=== PATIENT | male | born 1965 | race Caucasian/White ===

== ENCOUNTER 2021-12-27 13:36 | Emergency (ER) | payer MEDICARE, MEDICAID, SELFPAY ==
[2021-12-27 14:39] VITALS: BP 119/93; PULSE 82; RESP 18; TEMP 36.8; O2SAT 98; BMI 25.4
[2021-12-27 14:43] LABS: Glucose, Whole Blood 262 mg/dL (60-115)
--- NOTE | 2021-12-27 16:08 | ED.GENADULT ---
HPI - General Adult General Chief complaint: General Medical Stated complaint: Diabetic-no insulin x2 days Time Seen by Provider: 12/27/21 16:08 History of Present Illness HPI narrative: Patient complains that he is out of insulin for 2 days, the reason is that his insulin pen did not work properly He called his doctor's office and they called in a new prescription for the same grimes and the pharmacy told them that they could not refill it as it is too early and otherwise costs too much so he is here seeking an alternative insulin prescription He has had problems with insulin dosing and has had 2 episodes of hypoglycemia over recent weeks as his doctor tries to get the insulin adjusted to him At this point he is asymptomatic he is not dizzy he is not confused he is not nauseous not vomiting is tolerating p.o. and feels fine Related Data Allergies Allergy/AdvReac Type Severity Reaction Status Date / Time No Known Allergies Allergy Verified 12/27/21 14:39 sildenafil [Viagra] AdvReac Unknown not Verified 05/11/15 00:00 effective Review of Systems Review of Systems: No fever no chills no dizziness no weakness no confusion no headache no stiff neck no chest pain no nausea vomiting or diarrhea Yes all other systems are reviewed and are negative PMFSH Past Medical History Source: nursing notes reviewed Medical History (Updated 12/27/21 @ 16:19 by WILI Mccloud) Diabetes Social History Social History Advance Directives: No Advance Directives Information Provided: Yes Physical Exam ED Vital Signs: Vital Signs - 24 hr 12/27/21 14:39 Temperature 98.2 F Pulse Rate 82 Respiratory Rate 18 Blood Pressure 119/93 H Pulse Oximetry 98 BMI result Body Mass Index 25.4 General appearance is no acute distress Head is normocephalic atraumatic Neck is supple Respiratory no distress Extremities full range of motion x4 Neuro gait and balance are normal, interaction both comprehension and expression are normal, A&O x3 Course Course Course Narrative: Patient who was told at the pharmacy that is specific insulin prescription is not available because of an insurance issue and a is not clear what the best substitute product is, today his sugar is 260 he is asymptomatic, he has gone 1 day without his insulin and he has access to his primary care who has dealt with issues of hypoglycemia and getting the insulin balance correct He is advised call your doctor let him know that you could not get the prescribed insulin product and ask him to prescribe a different form of insulin that the pharmacy could feel today with appropriate directions Patient understood that the best plan as there have been issues with his insulin dosing is to have 1 provider write his prescriptions and he does have a provider who is available and he will leave here in call the office and he knows he can return any time if he develops any symptoms or problems that can not be solved through his doctor Medical Decision Making Lab Data Labs: Lab Results 12/27/21 Range/Units 14:40 POC Glucose 262 H (60-115) mg/dL Discharge Plan Discharge Clinical Impression: Medication refill Patient Disposition: Home, Self-Care Additional Instructions: Call your doctor's office as your doctor will write an appropriate insulin product with appropriate dosing They have your records and are from 0 here with your history so best plan is to contact the doctor at [place] which should not be difficult and that will provide best continuity of care Return to this ER any time if you feel worse or have any concerns Interventions: ED Discharge Assessment Last Done: 12/27/21 16:35 Discharge Date/Time: 12/27/21 16:35
== END 2021-12-27 16:35 | disposition home or self-care (01) ==
PROVIDERS: Emergency Provider Emergency Medicine; PCP Internal Medicine
DX: E11.9 Type 2 diabetes mellitus without complications (principal)
CPT/HCPCS: 82947; 99282; 99284

== ENCOUNTER 2025-03-14 09:47 | Inpatient (IN) | payer MEDICARE, SELFPAY ==
--- NOTE | 2025-03-14 | ECG_ITS ---
Test Reason : weakness Blood Pressure : */* mmHG Vent. Rate : 74 BPM Atrial Rate : 74 BPM P-R Int : 184 ms QRS Dur : 118 ms QT Int : 414 ms P-R-T Axes : 46 251 45 degrees QTcB Int : 459 ms Normal sinus rhythm Right bundle branch block Abnormal ECG No previous ECGs available Referred By: Generic ED Physician Electronically Signed By: Renato Bean
--- NOTE | ~2025-03-14 | CT_ITS ---
EXAMINATION: CT ABDOMEN AND PELVIS WITHOUT CONTRAST CLINICAL INFORMATION: Abdominal pain and vomiting, acute kidney injury DLP: 638 mGY*cm COMPARISON: None available. TECHNIQUE: Multidetector volumetric imaging was performed from the superior aspect of the liver through the pubic symphysis. Sagittal and coronal reformatted images were obtained on the technologist's workstation. This CT examination was performed using dose optimization techniques as appropriate, variously including the following: *Automated exposure control *Adjustment of mA and/or kV according to patient size (this includes techniques or standardized protocols for targeted exams where dose is matched to indication/reason for exam; i.e. extremities or head) *Use of iterative reconstruction technique FINDINGS: LUNG BASES: Small pneumatocele is visible in the medial segment right middle lobe. There are a few small pulmonary nodules, solid, in the lung bases. The largest measures 3 x 5 mm in the lateral left lower lobe (image 14/105 series 3). LIVER, GALLBLADDER, AND BILIARY TREE: The liver is normal in size, shape, and attenuation. No focal hepatic lesion or biliary ductal dilatation is present. The gallbladder is unremarkable with no evidence of radiopaque gallstones, gallbladder wall thickening, or obvious pericholecystic inflammatory changes. PANCREAS: Unremarkable. SPLEEN: Unremarkable. ADRENAL GLANDS: Unremarkable. KIDNEYS AND URETERS: There is no hydronephrosis. There is a 2 mm stone in the upper left kidney. BLADDER: Unremarkable. GASTROINTESTINAL TRACT: Fluid is seen throughout small bowel. There is also fluid layering in the rectum. Appendix is normal caliber with small amount of gas in the tip. Shotty subcentimeter nodes are present in the mesentery. There is no ascites. ABDOMINAL WALL: There are changes related to prior anterior wall abdominal hernia repair. There is no sign of recurrence. LYMPH NODES: No lymphadenopathy. VASCULAR: Multifocal atherosclerotic calcifications are in the pelvis, and common femoral arteries. PELVIC VISCERA: Unremarkable. OSSEOUS STRUCTURES: Degenerative endplate irregularity with sclerosis and Schmorl's nodes noted at L2-3, L4-5, and L5-S1. There are also facet osteophytes and hypertrophy. Mild wedging of T12 may be physiologic in nature. CT/CT abdomen pelvis wo IV con IMPRESSION: Fluid is evident throughout the small bowel and in the rectum. This is nonspecific finding but could relate to a gastroenteritis. 2 mm nonobstructing stone, upper left kidney. Lumbar spine degenerative disc disease and facet arthropathy. Changes from ventral hernia repair without recurrence. Multiple small subpleural pulmonary nodules are present in the lung bases, left greater than right. The largest is on the left and measures 3 x 5 mm. No further follow-up is indicated per Fleischner Society recommendations, unless the patient falls into a high risk category, in which case a 12 month follow-up CT chest without contrast is optional. High risk patients includes those with a history of smoking, first-degree relative with lung cancer, or exposure to uranium, radon, or asbestos. Electronically signed by: Fredis Murrieta MD 03/14/2025 03:03 PM EDT
[2025-03-14 09:54] VITALS: BP 107/78; PULSE 80; O2SAT 100
[2025-03-14 10:00] VITALS: BP 113/85; PULSE 78; RESP 19; TEMP 36.6; O2SAT 96; BMI 21.3
[2025-03-14 10:56] LABS: Hematocrit 45.4 % (42.0-52.0); Hemoglobin 16.3 g/dl (14.0-18.0); Mean Corpuscular HGB Conc 35.9 g/dl (31.0-36.0); Mean Corpuscular Hemoglobin 29.6 pg (27.0-33.0); Mean Corpuscular Volume 82.4 fL (80.0-98.0); Mean Platelet Volume 8.6 fL (9.4-12.4); Platelet Count 353 X10*3/uL (160-400); Red Blood Count 5.51 X10*6/uL (4.60-5.80); Red Cell Distribution Width 12.3 % (11.0-16.0); White Blood Count 5.2 X10*3/uL (4.8-10.8)
[2025-03-14 11:08] LABS: Alanine Aminotransferase 13 U/L (0-40); Albumin Level 4.5 g/dL (3.5-5.0); Alkaline Phosphatase 118 U/L (39-117); Anion Gap 18 (12-20); Aspartate Amino Transferase 26 U/L (5-37); Bilirubin Total 0.7 mg/dL (0.0-1.0); Blood Urea Nitrogen 45 mg/dL (9-16); Calcium 9.4 mg/dL (8.4-10.2); Carbon Dioxide 18 mmol/L (22-29); Chloride 98 mmol/L (96-108); Creatinine Clr Calc Pharmacy 28.3; Estimated Glomerular Filt Rate 21; Glucose Random 200 mg/dL (60-115); Magnesium 1.6 mg/dL (1.6-2.6); Potassium 4.2 mmol/L (3.3-5.1); Sodium 130 mmol/L (135-145); Total Protein 7.4 g/dL (6.5-8.0)
--- OUTSIDE RECORDS SUMMARY | 2025-03-14 11:28 | XMS_ITS | Clinical Summary ---
Author Organization [facility] [address] [facility] Address [address] [place] [address] Phone Care Team Providers Care Director Of Student Services Name Role Phone Rudolph Metcalf MD Primary Care Provider [phone] Allergies No known active allergies Medications alcohol swabs (BD Alcohol Swabs) pads, medicated 1 each by Other route. Alcohol Swabs (B-D SINGLE USE SWABS REGULAR) Pads 1 Each by Other route See Admin Instructions. USE DIRECTED THREE TIMES DAILY 4 Active mirtazapine (REMERON) 30 mg tablet Take 1 tablet (30 mg total) by mouth at bedtime. 4 Active ibuprofen (ADVIL,MOTRIN) 600 mg tablet TAKE 1 TABLET BY MOUTH THREE TIMES DAILY NEEDED FOR PAIN 1 Active blood glucose control, normal (OneTouch Ultra Control) solution Blood Glucose Calibration (OT ULTRA/FASTTK CNTRL SOLN) Solution Active propranoloL (INDERAL) 60 mg tablet TAKE 1 TABLET BY MOUTH EVERY DAY FOR 10 DAYS THEN TAKE 1 TABLET BY MOUTH TWICE DAILY FOR 30 DAYS DIRECTED Active insulin glargine,hum.rec. anlog (Basaglar KwikPen U-100 Insulin) 100 unit/mL (3 mL) injection pen ADMINISTER 24-26 UNITS UNDER THE SKIN AT BEDTIME 4 Active BD Ultra-Fine Short Pen Needle 31 gauge x 5/16 needle USE TO INJECT INSULIN UNDER THE SKIN EVERY NIGHT AT BEDTIME 100 each 1 4 Active wnite petrolatum-minera l (EUCERIN) cream Apply topically if needed for wound care. 397 g 5 026 Active lanolin hururae-os-g.pet- ceres (Eucerin) cream Lotion feet daily 100 g 5 Active blood-glucose meter (OneTouch Verio Flex meter) miscIndications:D M (diabetes mellitus), type 2 with peripheral vascular complications ([facility] V24, [facility] V28) Use this monitor to check blood sugars three times a day 1 each 5 Active blood sugar diagnostic (OneTouch Verio test strips) test stripIndications: DM (diabetes mellitus), type 2 with peripheral vascular complications ([facility] V24, [facility] V28) Use this to check blood sugars three times a day 300 each 3 5 026 Active OneTouch UltraSoft LancetsIndication s:DM (diabetes mellitus), type 2 with peripheral vascular complications ([facility] V24, [facility] V28) Use to check blood sugars three times daily 300 each 3 5 026 Active metFORMIN (GLUCOPHAGE) 1,000 mg tablet Take 1 tablet (1,000 mg total) by mouth 2 (two) times a day with meals. 180 tablet 1 5 Active glipiZIDE (GLUCOTROL) 5 mg tablet TAKE 2 TABLETS BY MOUTH EVERY MORNING 180 tablet 1 5 Active diclofenac (VOLTAREN) 1 % topical gel Apply 2 g topically 4 (four) times a day. 30 g 1 5 Active Active Problems Problem Noted Date Diagnosed Date Vitiligo 07/23/2018 Essential tremor 07/23/2018 Mood disorder ([facility] V24) 06/18/2018 Osteophyte determined by x-ray 03/27/2018 Osteoarthritis of right hand 03/27/2018 Incisional hernia, without obstruction or gangre ne 04/11/2016 Erectile dysfunction 09/21/2015 DM (diabetes mellitus), type 2 with peripheral vascular complications ([facility] V24, [facility] V28) 09/21/2015 Hypertension 09/21/2015 Hyperlipidemia 09/21/2015 Insomnia 09/21/2015 Migraines 09/21/2015 Lumbago 02/17/2006 Encounters Date Type Department Care Team Description 02/28/2025 8:30 AM EDT Office Visit Adult [address] [phone] Rudolph Metcalf MD Left hip pain (Primary Dx); Weight loss 02/17/[address] [phone] Fifi Stoddard LPN Fitting for DME (Faxed form from [employer]) 02/03/[address] [phone] Rudolph Metcalf MD Forms/questionnaires (Disabled parking placard/ plate) 02/02/2025 9:20 AM EDT Office Visit [address] [phone] Gabrielle Almodovar PA DM (diabetes mellitus), type 2 with peripheral vascular complications (CMS/HCC V24, CMS/HCC V28) (Primary Dx); Hypertension, unspecified type; Hyperlipidemia, unspecified hyperlipidemia type 12/28/[address] [phone] Gabrielle Almodovar PA letter request 12/28/[address] [phone] Rudolph Metcalf MD Letter for School/Work (Traveling out of the country) from Last 3 Months Immunizations Name Administration Dates Next Due COVID-19 (Moderna/Spikevax) 12yo and older 02/20,01/23/2021 Influenza Quadravalent, MDCK , 0.5ml, preservative free (Flucelvax) 6mo and older 10/09/2021,06/01/2020 Influenza Quadravalent, MDCK , 0.5ml, with preservative (Flucelvax) 6mo and older 06/24/2017 Influenza trivalent, with pr eservative (Fluzone; Afluria) 6mo and older 07/06/2015 Pneumococcal polysaccharide 23 valent (Pneumovax 23) 2yo and older 10/24/2009 Td Tetanus diptheria (Tdvax) 7yo and older 02/13 Tdap Tetanus diptheria acell ular pertussis (Boostrix; Adacel) 7yo and older 09/29/2007 Zoster recombinant (Shingrix) 19yo and older 04/2019,06/07/2019 Surgical History Surgery Date Site/Laterality Comments OTHER SURGICAL HISTORY PROCEDURE: EMERGENCY TRACHEOTOMY; COMMENT: at age 14 reversed now COLONOSCOPY 2.4.15 PROCEDURE: HISTORICAL COLONOSCOPY; COMMENT: polyp KNEE SURGERY Right PROCEDURE: HISTORICAL KNEE SURGERY LEG SURGERY 1976 Left PROCEDURE: HISTORICAL LEG SURGERY; COMMENT: right femur - steel plates HERNIA REPAIR 1965 PROCEDURE: HISTORICAL HERNIA REPAIR/ING Medical History Medical History Date Comments Lumbago DX:Lumbago Erectile dysfunction 09/21/2015 DX:Erectile dysfunction DM (diabetes mellitus), type 2 with peripheral vascular complications ([facility] V24, [facility] V28) 09/21/2015 DX:DM (diabetes mellitus), type 2 with peripheral vascular complications ([facility]) Hypertension 09/21/2015 DX:Hypertension Hyperlipidemia 09/21/2015 DX:Hyperlipidemi a Insomnia 09/21/2015 DX:Insomnia Migraines 09/21/2015 DX:Migraines TBI (traumatic brain injury) ([facility] V24, [facility] V28) 09/21/2015 DX:TBI (traumatic brain inju ry) ([facility]); COMMENT: Memory impairment Family History Medical History Relation Name Comments Other: Other Father Alive and well Other cancer Mother diabetes Relation Name Status Comments Father Alive Mother Alive Social History Tobacco Use Types Packs/Day Years Used Date Smoking Tobacco: Former Cigarettes Q uit: 09/29/2006 Smokeless Tobacco: Never Tobacco Cessation:Counseling Given: Not Answered Alcohol Use Standard Drinks/Week Comments Yes 0 (1 standard drink = 0.6 oz pur e alcohol) Sex and Gender Information Value Date Recorded Sex Assigned at Not on file Legal Sex Male 12:28 AM EST Gender Identity Not on file Sexual Orientation Not on file Obstetrics History Last Filed Vital Signs Vital Sign Reading Time Taken Comments Blood Pressure 108/64 02/28/2025 8:25 AM EDT Pulse 60 02/28/2025 8:25 AM EDT Temperature 36.5 ??C (97.7 ??F) 02/28/2025 8:25 AM ED T Respiratory Rate 14 02/28/2025 8:25 AM EDT Oxygen Saturation 98% 02/28/2025 8:25 AM EDT Inhaled Oxygen Concentration - - Weight 85.7 kg (189 lb) 02/28/2025 8:25 AM EDT Height 193 cm (6' 4 ) 02/28/2025 8:25 AM EDT Body Mass Index 23.01 02/28/2025 8:25 AM EDT Plan of Treatment Upcoming Encounters Date Type Department Care Team (Late st Contact Info) Description 06/01/2025 11:00 AM EDT Office Visit Adult Medicine [facility] [address] [place] [address] Rudolph Metcalf MD [address] [place] [id number] 07/26/2025 10:00 AM EDT Office Visit Orthopedic Surgery - [place] [address] [phone] Momo Majano, DPM [address] [address] Health Maintenance Due Date Last Done Comments Diabetes: Annual Foot Exam 1975 HIV Screening 09/07/2022 Medicare Annual Wellness Visit 09/07/2022 Social Influencers of Health Screening 09/07/2022 COVID-19 Vaccine ( season) 2024 02/20/2021, 01/23/2021 Diabetes: Annual Retina Eye Exam 11/12/2024 11/12/2023 Diabetes: Annual GFR (Glomerular Filtration Rate) 05/04/2025 05/04/2024 Hypertension/CHF/CAD Annual BMP Blood Test 05/04/2025 05/04/2024 Depression Screening 05/28/2025 05/28/2024 Influenza Vaccine (Season Ended) 2025 10/09/2021, 06/01/2020, 06/07/2019, Additional history exists Diabetes: Blood Sugar Control Test (HGBA1C) 08/05/2025 02/02/2025, 08/04/2024, 05/04/2024, Additional history exists Diabetes: Annual Urine Albumin-Creatinine Ratio (uACR) 12/06/2025 12/06/2024, 11/13/2023 DTaP,Tdap,and Td Vaccines (3 - Td or Tdap) 02/14/2028 02/13/2018, 09/29/2007 Colorectal Cancer Screening: Colonoscopy 11/13/2028 11/13/2023 Cholesterol Screening (Lipid Panel) 12/06/2029 12/06/2024, 11/13/2023 Hepatitis C Screening Completed 10/12/2015 Zoster Vaccines Completed 08/06/2019, 06/07/2019 Pneumococcal Vaccine: 50+ Years Completed 12/31/2024, 10/24/2009 Pneumococcal Vaccine: Pediatrics (0 to 5 Years) and At-Risk Patients (6 to 64 Years) Completed 12/31/2024, 10/24/2009 RSV Immunization Adult Patients Completed 12/31/2024 HIB Vaccines Aged Out No longer eligi ble based on patient's age to complete this topic HPV Vaccines Aged Out No longer eligi ble based on patient's age to complete this topic Hepatitis A Vaccines Aged Out No long er eligible based on patient's age to complete this topic Hepatitis B Vaccines Aged Out No long er eligible based on patient's age to complete this topic IPV Vaccines Aged Out No longer eligi ble based on patient's age to complete this topic MMR Vaccines Aged Out No longer eligi ble based on patient's age to complete this topic Meningococcal ACWY Vaccine Aged Out N o longer eligible based on patient's age to complete this topic Meningococcal B Vaccine Aged Out No l onger eligible based on patient's age to complete this topic RSV Immunization Patients Under 20 months Aged Out No longer eligible based on patient's age to complete this topic Varicella Vaccines Aged Out No longer eligible based on patient's age to complete this topic Procedures Procedure Name Priority Date/Time Associated Diagnosis Comments HEMOGLOBIN A1C Routine 02/02/2025 10:00 AM EDT DM (diabetes mellitus), type 2 with peripheral vascular complications ([facility] V24, [facility] V28) MICROALBUMIN CREATININE URINE RATIO Routine 12/06/2024 9:43 AM EDT Controlled type 2 diabetes mellitus with complication, with long-term current use of insulin ([facility] V24, [facility] V28) LIPID PANEL WITH REFLEX TO DIRECT LDL Routine 12/06/2024 9:43 AM EDT Controlled type 2 diabetes mellitus with complication, with long-term current use of insulin ([facility] V24, [facility] V28) DEPRESSION SCREENING Routine 05/28/2024 COLONOSCOPY Routine 11/13/2023 DIABETES EYE EXAM Routine 11/12/2023 HEPATITIS C SCREENING Routine 10/12/2015 from Last 3 Months or Most Recently Relevant to Health Maintenance Results * (ABNORMAL) Hemoglobin A1c (02/02/2025 10:00 AM EDT) Hemoglobin A1C 7.6(H) <6.5 % LAB CHEMISTRY METHOD 02/02/2025 9:27 PM EDT [facility] Mean Bld Glu Estim. 171 mg/dL LAB CHEMISTRY METHOD 02/02/2025 9:27 PM EDT [facility] Blood Venous blood specimen / Unknown Venipuncture / Unknown 02/02/2025 10:00 AM EDT 02/02/2025 10:00 AM EDT us Gabrielle RASHEED LAB BLOOD ORDERABLES Final Resul t [facility] [address] [place] [address], [place] [phone] * (ABNORMAL) Lipid panel with reflex to direct LDL (12/06/2024 9:43 AM EDT) Cholesterol 103 0 - 200 mg/dL LAB CHEMISTRY METHOD 12/06/2024 1:05 PM EDT [facility] Triglycerides 124 0 - 150 mg/dL LAB CHEMISTRY METHOD 12/06/2024 1:05 PM EDT [facility] HDL 29(L) >=40 mg/dL LAB CHEMISTRY METHOD 12/06/2024 1:05 PM EDT [facility] LDL Calculated 49 0 - 100 mg/dL LAB CHEMISTRY METHOD 12/06/2024 1:05 PM EDT [facility] VLDL Cholesterol [place] 24.8 mg/dL LAB CHEMISTRY METHOD 12/06/2024 1:05 PM EDT [facility] Non HDL Chol. (LDL+VLDL) 74 <145 mg/dL LAB CHEMISTRY METHOD 12/06/2024 1:05 PM EDT [facility] Chol/HDL Ratio 3.6 0.0 - 4.4 LAB CHEMISTRY METHOD 12/06/2024 1:05 PM EDT [facility] Blood Venous blood specimen / Unknown Venipuncture / Unknown 12/06/2024 9:43 AM EDT 12/06/2024 9:43 AM EDT us Rudolph Metcalf MD LAB BLOOD ORDERABLES Final Resu lt [facility] [address] [place] [address], * (ABNORMAL) Microalbumin creatinine urine ratio (12/06/2024 9:43 AM EDT) Creatinine, Urine 289.0 mg/dL LAB CHEMISTRY METHOD 12/06/2024 1:58 PM EDT [facility] Microalb, Ur 41.1(H) 0.0 - 29.0 mg/L LAB CHEMISTRY METHOD 12/06/2024 1:58 PM EDT [facility] Microalb/Crea t Ratio 14 <30 mg/g creat LAB CHEMISTRY METHOD 12/06/2024 1:58 PM EDT [facility] Urine Urine specimen obtained by clean catch procedure / Unknown Non-blood Collection / Unknown 12/06/2024 9:43 AM EDT 12/06/2024 9:43 AM EDT Rudolph Metcalf MD LAB URINE ORDERABLES Final Resu lt [facility] [address] [place] [address], [place] [phone] * Depression Screening (05/28/2024) [facility] Depression Screening Abstracted Historical Provider HEALTH MAINTENANCE Final Result * Colonoscopy (11/13/2023) [facility] Colonoscopy No Interpretation , Abstracted Anatomical Region Laterality Modality Other [facility] Provider HEALTH MAINTENANCE Final Result * Diabetes Eye Exam (11/12/2023) [facility] Diabetes: Annual Retina Eye Exam Abstracted Historical Provider HEALTH MAINTENANCE Final Result * Hepatitis C Screening (10/12/2015) [facility] Hepatitis C Screening Abstracted Historical Provider HEALTH MAINTENANCE Final Result from Last 3 Months or Most Recently Relevant to Health Maintenance Insurance [employer] MEDICARE ADVANTAGE MEDICAID - [place] Care Teams Director Of Student Services Relationship Specialty Start Date End Date Rudolph Metcalf MD [address] [place] [id number] PCP - General Internal Medicine 08/03/05
[2025-03-14 11:37] LABS: Neutrophils Percent Manual 33 % (45-73)
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
[2025-03-14 11:40] LABS: Atypical Lymph Absolute Manual 0.1 x10*3/uL; Atypical Lymphs Percent Manual 1 % (0-6); Band Neutrophils Percent 11 % (3-5); Basophils Abs Manual 0.1 X10*3/uL (0.0-0.2); Basophils Percent Manual 2 % (0-2); Eosinophils Absolute Manual 0.2 X10*3/uL (0.0-0.4); Eosinophils Percent Manual 3 % (0-4); Lymphocytes Percent Manual 20 % (20-40); Metamyelocytes Absolute 0.1 X10*3/uL; Metamyelocytes Percent 1 %; Monocytes Absolute Manual 1.5 X10*3/uL (0.1-1.2); Monocytes Percent Manual 29 % (2-11); Neutrophils Absolute Manual 2.3 X10*3/uL (2.0-8.3)
[2025-03-14 11:41] LABS: RBC Morphology NOTED
[2025-03-14 11:42] LABS: Acanthocytes 2+ (3-5) /OIF; Burr Cells 3+ (>5) /OIF; Platelet Estimate NORMAL (NORMAL); Platelet Morphology Comment NORMAL
[2025-03-14] MEDS: 0.9 % Sodium Chloride 1,000 ML 999 ML IV ×3 (11:58→15:32)
[2025-03-14] MEDS: ondansetron HCL 4 MG/2 ML VIAL IVPUSH (11:58)
[2025-03-14] MEDS: Pantoprazole Sodium 40 MG/10 ML VIAL IVPUSH (11:58)
[2025-03-14] MEDS: levoFLOXacin/D5W 750 MG/150 ML PIGGYBACK 100 MG IV (12:32)
[2025-03-14 12:42] VITALS: BP 118/76; PULSE 68; RESP 16; TEMP 36.2; O2SAT 98
[2025-03-14] MEDS: Magnesium Hydrox/Alum Hydrox 30 ML ORAL.SUSP PO (13:40)
[2025-03-14 14:51] VITALS: BP 91/56; PULSE 666; RESP 12; TEMP 36.2; O2SAT 98
--- NOTE | 2025-03-14 15:06 | PC.NURSE ---
Pt has not produced any urine after first liter of IVF's; bladder scan showed no retention; MD made aware
[2025-03-14 15:34] LABS: Appearance Urine Cloudy; Color Urine Dark Yellow; Glucose Urine UA Negative (Negative); Leukocyte Esterase Urine Trace (Negative); Nitrite Urine Negative (Negative); PH 5.5 (5.0-9.0); Specific Gravity - Urine >= 1.030 (1.005-1.025); UMIC TRIGGER UACC YES; Urine Blood Negative (Negative); Urine Ketones 15 mg/dL (Negative); Urine Protein 100 (2+) mg/dL (Neg-Trace)
--- NOTE | 2025-03-14 15:42 | PM.IMHP ---
History of Present Illness Date of Service: 03/14/25 Chief Complaint: Diarrhea, weakness A 60 years old male with PMH of DMII, HTN who presents to ED with 1 week history of nausea, vomiting, diarrhea and abdominal pain [place] He reports nausea and vomiting could not allow him to drink or eat for few days while he has been goind frequently to the bathroom for diarrhea. water, brownish in color. No fever, chest pain, palpitations, SOB, or urinary symptoms. Did not seen blood in stool or with vomiting. Feels tired and fatigued. His mother was with him in trip and got similar symptoms but resolved. In ED found to have Cr of 3 which is new along with low sodium level. Abd CT showing possible gastroenteritis. CT also reports lung nodules that needs follow up in 12 months. admitted for further work up and treatment Review of Systems Review of Systems: No fever, chills but has weakness No chest pain, palpitation No shortness of breath or coughing reporting abdominal pain, nausea or vomiting No urinary symptoms No any rash or wounds PMFSH Medical History Diabetes Social History Household Members: Family Housing: Other Housing Other:: moble home Patient Tobacco Use Status: Never used Tobacco Smoked in Last 30 Days: No Use of substances other than those prescribed or required for medical reasons: No Currently Displaying Signs/Symptoms of Drug Intoxication Withdrawal: No Have you been hit, kicked, punched, or otherwise hurt by someone within the past year? If so, by whom?: No Do you feel safe in your current relationship?: No Current Relationship Is there a partner from a previous relationship who is making you feel unsafe now?: No Are you made to feel afraid or neglected: No Advance Directives: No Advance Directives Information Provided: Yes Do you have a plan to hurt others: No Plan Recently lost weight without trying: Unsure Eating poorly because of decreased appetite: Yes Nutrition Risks: Poor intake 0-25% >4 days Poor oral hygiene: No service: No Meds Allergies Allergy/AdvReac Type Severity Reaction Status Date / Time No Known Allergies Allergy Verified 03/14/25 10:01 Active Medications: Current Medications Sodium Chloride (Ns) 1,000 mls @ 999 mls/hr IV .Q1H1M ONE Stop: 03/14/25 16:27 Last Admin: 03/14/25 15:32 Dose: 999 mls/hr Home Medications ?Medication ?Instructions ?Recorded ?Confirmed ?Last Taken ?Type glipizide 5 mg tablet 10 mg PO DAILY 03/14/25 03/14/25 03/14/25 History insulin glargine 100 unit/mL (3 24 unit subcut BEDTIME 03/14/25 03/14/25 03/13/25 History mL) subcutaneous pen (Basaglar KwikPen U-100 Insulin) metformin 1,000 mg tablet 1,000 mg PO BID 03/14/25 03/14/25 03/14/25 History mirtazapine 30 mg tablet 30 mg PO BEDTIME 03/14/25 03/14/25 03/13/25 History propranolol 60 mg tablet 120 mg PO DAILY 03/14/25 03/14/25 03/14/25 History Physical Exam Vital Signs and Narrative: Vital Signs: Last Vital Signs Temp 97.1 F 03/14/25 14:51 Pulse 666 H 03/14/25 14:51 Resp 12 03/14/25 14:51 BP 91/56 L 03/14/25 14:51 Pulse Ox 98 03/14/25 14:51 O2 Del Method Room Air 03/14/25 14:51 BMI result Body Mass Index 21.3 Const: Other: Constitutional : Awake, interactive, not in distress Neck : Normal inspection, Supple Cardiovascular : RRR, no JVP, no lower extremity edema Respiratory : good bilateral air entry, no crackles, wheezes or rhonchi Gastrointestinal: soft, lax, Normal bowel sounds, generalized tenderness Skin : Warm, Dry Neurological : Alert & oriented x3, No focal deficit Results Labs 03/15/25 05:48 03/15/25 05:48 Labs: Laboratory Results - last 24 hr 03/14/25 10:48 MCV 82.4 MCH 29.6 MCHC 35.9 RDW 12.3 Plt Count 353 MPV 8.6 L Immature Gran % (Auto) Cancelled Neut % (Auto) Cancelled Lymph % (Auto) Cancelled [place] % (Auto) Cancelled Eos % (Auto) Cancelled Baso % (Auto) Cancelled Lymph # (Auto) Cancelled [place] # (Auto) Cancelled Eos # (Auto) Cancelled Baso # (Auto) Cancelled Abs Immat Gran (auto) Cancelled Absolute Neuts (auto) Cancelled Absolute Nucleated RBC 0.000 Nucleated RBC % (auto) 0.0 Neutrophils % (Manual) 33 L Band Neutrophils % 11 H Lymphocytes % (Manual) 20 Atypical Lymphs % (Man) 1 Monocytes % (Manual) 29 H Eosinophils % (Manual) 3 Basophils % (Manual) 2 Metamyelocytes % 1 Abs Neuts (Manual) 2.3 Lymphocytes # (Manual) 1.0 L Atyp Lymphs # (Manual) 0.1 Monocytes # (Manual) 1.5 H Eosinophils # (Manual) 0.2 Basophils # (Manual) 0.1 Metamyelocytes # 0.1 Platelet Estimate NORMAL Plt Morphology Comment NORMAL RBC Morphology NOTED [place] Cells 3+ (>5) Acanthocytes (Spur) 2+ (3-5) Anion Gap 18 Estim Creat Clear Calc 28.3 Estimated GFR 21 Random Glucose 200 H Calcium 9.4 Magnesium 1.6 Total Bilirubin 0.7 AST 26 ALT 13 Alkaline Phosphatase 118 H Total Protein 7.4 Albumin 4.5 Imaging Radiologist's Impressions: Impressions Abdomen/Pelvis CT 03/14/25 12:57 IMPRESSION: Fluid is evident throughout the small bowel and in the rectum. This is nonspecific finding but could relate to a gastroenteritis. 2 mm nonobstructing stone, upper left kidney. Lumbar spine degenerative disc disease and facet arthropathy. Changes from ventral hernia repair without recurrence. Multiple small subpleural pulmonary nodules are present in the lung bases, left greater than right. The largest is on the left and measures 3 x 5 mm. No further follow-up is indicated per Fleischner Society recommendations, unless the patient falls into a high risk category, in which case a 12 month follow-up CT chest without contrast is optional. High risk patients includes those with a history of smoking, first-degree relative with lung cancer, or exposure to uranium, radon, or asbestos. Electronically signed by: Fredis Murrieta MD 03/14/2025 03:03 PM EDT Assessment and Plan (1) NANI (acute kidney injury): Status: Acute (2) Dehydration: Status: Acute (3) Gastroenteritis: Status: Acute (4) Acute hyponatremia: Status: Acute (5) Lung nodules: Status: Acute Plan a 60-year-old male brought in by ambulance for evaluation of persistent nausea, vomiting, nonbloody watery diarrhea for about a week. Acute gastroenteritis CT scan report as above IV fluids IV Flagyl for now Stool panel Acute renal failure likely ATN IVF, avoid nephrotoxic follow I\O and BMP acute Hyponatremia from dehydration IV fluids follow BMP DMII Lantus, SSI POC Lung nodules Small in size per CT needs outpatient follow up as outpatient in 12 months DVT PPx Lovenox The patient needs 2 overnight hospital stay for treatment of acute gastroenteritis and renal failure Quality Stroke Does the patient have a stroke diagnosis?: No VTE Prior VTE?: No VTE Risk Level:: Medical - moderate - high VTE Device Contraindication: Treatment Not Indicated VTE Drug Contraindication: N/A - Med Ordered
[2025-03-14 15:44] LABS: Chloride Urine Random < 20.0 mmol/L; Potassium Urine Random 53.3 mmol/L; Sodium Urine Random < 20.0 mmol/L
--- NOTE | 2025-03-14 15:50 | PC.NURSE ---
Pt able to void urine approx 75 ml; dark pita; pt also had loose, liquid stool/sent to lab per orders; pt ambulates with steady, indepen. gait; BP 120/68 at this time
[2025-03-14 15:58] LABS: Bacteria Urine None Seen (None Seen); Hyaline Casts Urine >20 /LPF (0-2); RBC Urine 0-2 /HPF (0-2); WBC Urine 0-5 /HPF (0-5)
[2025-03-14 16:01] LABS: Osmolality Urine 594 mosm/kg (373-1093)
[2025-03-14 16:29] LABS: CDiff Gene PCR NEGATIVE (Negative)
--- NOTE | 2025-03-14 16:45 | PHA.MEDREC ---
Addendum entered by Margie Carter [facility] 03/14/25 17:23: REVIEWED BY PHARMACIST Original Note: Pharmacy Consult ? Medication Reconciliation Pharmacy has completed the medication reconciliation. Spoke to patient to confirm med list. Patient had his RX bottles with him. Patient states he hasn't started Diclofenac sod Gel. Patient confirmed Glipazide 10 daily even though claims has Glipazide 5 mg Take 2 tablets by every morning and 1 tablet every evening, Propranolol patient takes 120 mg daily, even though claims has Propranolol 60 mg BID. Basaglar KwikPen 24 units daily. Patient had all his morning medications today at around 8:30am.
[2025-03-14] MEDS: Enoxaparin Sodium 40 MG/0.4 ML SYRINGE SUBCUT (17:25)
[2025-03-14] MEDS: metroNIDAZOLE/NS 500 MG/100 ML PIGGYBACK 100 MG IV (17:25)
[2025-03-14] MEDS: Lactated Ringers 1,000 ML 100 ML IVCONT (17:34)
[2025-03-14 17:38] LABS: Leukocytes Stool Qualitative NEGATIVE (NEGATIVE)
[2025-03-14 18:19] LABS: Glucose, Whole Blood 54 mg/dL (60-115)
[2025-03-14] MEDS: Dextrose 50 % 25 GM/50 ML SYRINGE IVPUSH (18:35)
--- NOTE | 2025-03-14 18:38 | PC.NURSE ---
Pt's POC BG 54; Dr May notified; pt mentating, not diaphoretic; pt gv 1 amp D50% per orders and pt tolerating PO apple juice at this time w/o N/V; will cont to monitor
[2025-03-14 19:08] LABS: Glucose, Whole Blood 145 mg/dL (60-115)
--- NOTE | 2025-03-14 19:40 | PC.NURSE ---
this rn assumed care of pt ,pt resting in stretcher. poc obtained. pt offers no complaints at this time
[2025-03-14 21:07] VITALS: BP 116/70; PULSE 75; RESP 18; TEMP 36.7; O2SAT 96
[2025-03-14] MEDS: Insulin Glargine,Hum.rec.anlog 100 UNIT/ML 10 ML VIAL 10 UNIT SUBCUT (21:24)
[2025-03-14] MEDS: Mirtazapine 30 MG TABLET PO (21:24)
[2025-03-14 23:35] VITALS: BP 119/64; PULSE 92; RESP 18; TEMP 37.1; O2SAT 94
[2025-03-15] MEDS: 0.9 % Sodium Chloride Flush 3 ML SYRINGE IVFLUSH ×2 (00:11→15:15)
[2025-03-15] MEDS: Lactated Ringers 1,000 ML 100 ML IVCONT ×2 (01:09→12:51)
[2025-03-15] MEDS: metroNIDAZOLE/NS 500 MG/100 ML PIGGYBACK 100 MG IV ×3 (01:10→17:03)
[2025-03-15 01:36] LABS: Glucose, Whole Blood 139 mg/dL (60-115)
[2025-03-15 04:00] VITALS: BP 101/65; PULSE 67; RESP 18; TEMP 36.3; O2SAT 94
[2025-03-15 06:48] LABS: Hematocrit 38.7 % (42.0-52.0); Hemoglobin 13.3 g/dl (14.0-18.0); Mean Corpuscular HGB Conc 34.4 g/dl (31.0-36.0); Mean Corpuscular Hemoglobin 29.4 pg (27.0-33.0); Mean Corpuscular Volume 85.6 fL (80.0-98.0); Mean Platelet Volume 9.1 fL (9.4-12.4); Platelet Count 226 X10*3/uL (160-400); Red Blood Count 4.52 X10*6/uL (4.60-5.80); Red Cell Distribution Width 12.4 % (11.0-16.0); White Blood Count 4.4 X10*3/uL (4.8-10.8)
[2025-03-15 07:26] LABS: Alanine Aminotransferase 7 U/L (0-40); Albumin Level 3.6 g/dL (3.5-5.0); Alkaline Phosphatase 91 U/L (39-117); Anion Gap 12 (12-20); Aspartate Amino Transferase 13 U/L (5-37); Bilirubin Total 0.5 mg/dL (0.0-1.0); Blood Urea Nitrogen 45 mg/dL (9-16); Calcium 8.5 mg/dL (8.4-10.2); Carbon Dioxide 21 mmol/L (22-29); Chloride 105 mmol/L (96-108); Creatinine Clr Calc Pharmacy 33.6; Estimated Glomerular Filt Rate 26; Glucose Random 41 mg/dL (60-115); Potassium 3.5 mmol/L (3.3-5.1); Sodium 134 mmol/L (135-145); Total Protein 5.9 g/dL (6.5-8.0)
[2025-03-15 07:28] VITALS: BP 110/67; PULSE 60; RESP 16; TEMP 36.2; O2SAT 99
[2025-03-15] MEDS: Dextrose 50 % 25 GM/50 ML SYRINGE IVPUSH (07:33)
[2025-03-15 07:50] LABS: Glucose, Whole Blood 52 mg/dL (60-115)
[2025-03-15 08:18] LABS: Glucose, Whole Blood 162 mg/dL (60-115)
[2025-03-15 08:22] LABS: Atypical Lymph Absolute Manual 0.2 x10*3/uL; Atypical Lymphs Percent Manual 5 % (0-6); Band Neutrophils Percent 9 % (3-5); Basophils Percent Manual 1 % (0-2); Eosinophils Percent Manual 1 % (0-4); Lymphocytes Absolute Manual 0.8 X10*3/uL (1.2-4.9); Lymphocytes Percent Manual 18 % (20-40); Metamyelocytes Percent 1 %; Monocytes Absolute Manual 1.1 X10*3/uL (0.1-1.2); Monocytes Percent Manual 24 % (2-11); Neutrophils Absolute Manual 2.2 X10*3/uL (2.0-8.3); Neutrophils Percent Manual 41 % (45-73)
[2025-03-15 08:26] LABS: Acanthocytes 2+ (3-5) /OIF; Burr Cells 3+ (>5) /OIF; Ovalocytes 1+ (5-14) /OIF; Platelet Estimate NORMAL (NORMAL); Platelet Morphology Comment NORMAL; RBC Morphology NORMAL; Toxic Vacuolation PRESENT
[2025-03-15 09:35] LABS: Adenovirus F 40/41 Not Detected (Not Detect.); Astrovirus Not Detected (Not Detect.); Campylobacter Not Detected (Not Detect.); Cryptosporidium Not Detected (Not Detect.); Cyclospora cayetanensis Not Detected (Not Detect.); E. coli EAEC Not Detected (Not Detect.); E. coli EPEC Not Detected (Not Detect.); E. coli ETEC Not Detected (Not Detect.); E. coli STEC Not Detected (Not Detect.); Entamoeba histolytica Not Detected (Not Detect.); Giardia lamblia Not Detected (Not Detect.); Norovirus GI/GII Not Detected (Not Detect.); Plesiomonas shigelloides Not Detected (Not Detect.); Rotavirus A Not Detected (Not Detect.); Salmonella Not Detected (Not Detect.); Sapovirus Not Detected (Not Detect.); Shigella sp./EIEC Not Detected (Not Detect.); Vibrio Not Detected (Not Detect.); Vibrio Cholerae Not Detected (Not Detect.); Yersinia enterocolitica Not Detected (Not Detect.)
--- NOTE | 2025-03-15 09:49 | MHC.CM.PN ---
IMM DELIVERED. PATIENT LIVES AT HOME W/ HIS BROTHER. INDEPENDENT W/ CARE. DENIES USE OF DME OR SERVICES. PCP ANTWAN SWEET MD NO HCP. CM PROVIDED EDUCATION AND OFFERED ASSISTANCE. PATIENT DECLINED. DP: HOME SELF CARE, MOTHER TO TRANSPORT. CM WILL CONTINUE TO FOLLOW.
--- NOTE | 2025-03-15 11:30 | HO.PM.IMPN ---
Subjective Subjective Date of Service: 03/15/25 Interval History: seen and evaluated feels little better diarrhea improving no more vomiting no other events Review of Systems Review of Systems: Yes all other systems are reviewed and are negative Physical Exam Vital Signs: Vital Signs: Last Vital Signs Temp 97.1 F 03/15/25 07:28 Pulse 60 03/15/25 07:28 Resp 16 03/15/25 07:28 BP 110/67 03/15/25 07:28 Pulse Ox 99 03/15/25 07:28 O2 Del Method Room Air 03/15/25 07:28 BMI result Body Mass Index 21.3 Const: Other: Constitutional : Awake, interactive, not in distress Neck : Normal inspection, Supple Cardiovascular : RRR, no JVP, no lower extremity edema Respiratory : good bilateral air entry, no crackles, wheezes or rhonchi Gastrointestinal: soft, lax, Normal bowel sounds, generalized tenderness Skin : Warm, Dry Neurological : Alert & oriented x3, No focal deficit Objective Data Active Medications Acetaminophen (Acetaminophen 325 Mg Tablet) 650 mg PO Q6H PRN PRN Reason: Pain, Mild 1-3,fever,headache Calcium Carbonate (Calcium Carbonate 750 Mg Tab.Chew) 750 mg PO Q4H PRN PRN Reason: Heartburn Dextrose (Dextrose 50 % 25 Gm/50 Ml Syringe) 25 gm IVPUSH Q15M PRN; Protocol PRN Reason: per Hypoglycemia Standing Ord. Last Admin: 03/15/25 07:33 Dose: 25 gm Documented By: MILDRED Enoxaparin Sodium (Enoxaparin Sodium 40 Mg/0.4 Ml Syringe) 40 mg SUBCUT Q24H [facility] Last Admin: 03/14/25 17:25 Dose: 40 mg Documented By: MARITA Lactated Ringer's (Lr) 1,000 mls @ 100 mls/hr IVCONT .Q10H [facility] Last Admin: 03/15/25 01:09 Dose: 100 mls/hr Documented By: LISY Metronidazole (Flagyl) 500 mg in 100 mls @ 100 mls/hr IV Q8H [facility] Last Infusion: 03/15/25 10:18 Dose: Infused Documented By: MILDRED Insulin Glargine (Insulin Glargine,Hum.Rec.Anlog 100 Unit/Ml 10 Ml Vial) 10 unit SUBCUT BEDTIME [facility] Last Admin: 03/14/25 21:24 Dose: 10 unit Documented By: LISY Insulin Human Lispro (Insulin Lispro 100 Unit/Ml 3 Ml Vial) 0 unit SUBCUT QIDACHS [facility]; Protocol Last Admin: 03/15/25 08:10 Dose: Not Given Documented By: MILDRED Non-Admin Reason: No Insulin Coverage Magnesium Hydroxide (Milk Of Magnesia 30 Ml Oral.Susp) 30 ml PO DAILY PRN PRN Reason: Constipation Melatonin (Melatonin 3 Mg Tablet) 6 mg PO BEDTIME PRN PRN Reason: Insomnia Mirtazapine (Mirtazapine 30 Mg Tablet) 30 mg PO BEDTIME [facility] Last Admin: 03/14/25 21:24 Dose: 30 mg Documented By: LISY Ondansetron HCl (Ondansetron Hcl 4 Mg/2 Ml Vial) 4 mg IVPUSH Q8H PRN PRN Reason: Nausea and Vomiting Sodium Chloride (0.9 % Sodium Chloride Flush 3 Ml Syringe) 3 ml IVFLUSH QSHIFT [facility] Last Admin: 03/15/25 09:14 Dose: Not Given Documented By: MILDRED Non-Admin Reason: IV Running Labs 03/15/25 05:48 03/15/25 05:48 Labs: Laboratory Results - last 24 hr 03/14/25 03/14/25 03/14/25 10:48 15:24 18:16 MCV MCH MCHC RDW Plt Count MPV Immature Gran % (Auto) Neut % (Auto) Lymph % (Auto) Ralls % (Auto) Eos % (Auto) Baso % (Auto) Lymph # (Auto) Ralls # (Auto) Eos # (Auto) Baso # (Auto) Abs Immat Gran (auto) Absolute Neuts (auto) Absolute Nucleated RBC Nucleated RBC % (auto) Neutrophils % (Manual) 33 L Band Neutrophils % 11 H Lymphocytes % (Manual) 20 Atypical Lymphs % (Man) 1 Monocytes % (Manual) 29 H Eosinophils % (Manual) 3 Basophils % (Manual) 2 Metamyelocytes % 1 Abs Neuts (Manual) 2.3 Lymphocytes # (Manual) 1.0 L Atyp Lymphs # (Manual) 0.1 Monocytes # (Manual) 1.5 H Eosinophils # (Manual) 0.2 Basophils # (Manual) 0.1 Metamyelocytes # 0.1 Toxic Vacuolation Platelet Estimate NORMAL Plt Morphology Comment NORMAL RBC Morphology NOTED Ovalocytes [place] Cells 3+ (>5) Acanthocytes (Spur) 2+ (3-5) Anion Gap Estim Creat Clear Calc Estimated GFR POC Glucose 54 L* Random Glucose Calcium Total Bilirubin AST ALT Alkaline Phosphatase Total Protein Albumin Urine Color Dark Yellow Urine Appearance Cloudy Urine pH 5.5 Ur Specific [place] >= 1.030 H Urine Protein 100 (2+) H Urine Glucose (UA) Negative Urine Ketones 15 Urine Blood Negative Urine Nitrite Negative Ur Leukocyte Esterase Trace H Urine RBC 0-2 Urine WBC 0-5 Ur Squamous Epith Cells 6-10 Urine Bacteria None Seen Hyaline Casts >20 Urine Osmolality 594 Ur Random Sodium < 20.0 Ur Random Potassium 53.3 Ur Random Chloride < 20.0 Stool Leukocytes, Qual NEGATIVE Stl C. cayetanensis PCR Stool Rotavirus A PCR Stl Adenov F PCR Stool Astrovirus (PCR) Stool Campylobacter PCR Stool Cryptosporidium PCR Stl Sh Tox Pr E STEC PCR Stool E coli O157 PCR Stl Enterotoxigenic E PCR Stool EPEC (PCR) Stool EAEC (PCR) Stl E. histolytica PCR Stool Giardia Lamblia PCR Stl P. shigelloides PCR Stool Salmonella PCR Stool Sapovirus (PCR) Stl Shigella/EIEC PCR St Y.enterocolitica PCR Stool Vibrio (PCR) Stl Vibrio cholerae PCR Stl Norovirus GI/GII PCR C. difficile Tox B Gene NEGATIVE 03/14/25 03/14/25 03/14/25 19:04 20:36 21:09 MCV MCH MCHC RDW Plt Count MPV Immature Gran % (Auto) Neut % (Auto) Lymph % (Auto) Ralls % (Auto) Eos % (Auto) Baso % (Auto) Lymph # (Auto) [place] # (Auto) Eos # (Auto) Baso # (Auto) Abs Immat Gran (auto) Absolute Neuts (auto) Absolute Nucleated RBC Nucleated RBC % (auto) Neutrophils % (Manual) Band Neutrophils % Lymphocytes % (Manual) Atypical Lymphs % (Man) Monocytes % (Manual) Eosinophils % (Manual) Basophils % (Manual) Metamyelocytes % Abs Neuts (Manual) Lymphocytes # (Manual) Atyp Lymphs # (Manual) Monocytes # (Manual) Eosinophils # (Manual) Basophils # (Manual) Metamyelocytes # Toxic Vacuolation Platelet Estimate Plt Morphology Comment RBC Morphology Ovalocytes [place] Cells Acanthocytes (Spur) Anion Gap Estim Creat Clear Calc Estimated GFR POC Glucose 145 H 139 H Random Glucose Calcium Total Bilirubin AST ALT Alkaline Phosphatase Total Protein Albumin Urine Color Urine Appearance Urine pH Ur Specific [place] Urine Protein Urine Glucose (UA) Urine Ketones Urine Blood Urine Nitrite Ur Leukocyte Esterase Urine RBC Urine WBC Ur Squamous Epith Cells Urine Bacteria Hyaline Casts Urine Osmolality Ur Random Sodium Ur Random Potassium Ur Random Chloride Stool Leukocytes, Qual Stl C. cayetanensis PCR Not Detected Stool Rotavirus A PCR Not Detected Stl Adenov F 40/41 PCR Not Detected Stool Astrovirus (PCR) Not Detected Stool Campylobacter PCR Not Detected Stool Cryptosporidium PCR Not Detected Stl Sh Tox Pr E STEC PCR Not Detected Stool E coli O157 PCR Not applicable Stl Enterotoxigenic E PCR Not Detected Stool EPEC (PCR) Not Detected Stool EAEC (PCR) Not Detected Stl E. histolytica PCR Not Detected Stool Giardia Lamblia PCR Not Detected Stl P. shigelloides PCR Not Detected Stool Salmonella PCR Not Detected Stool Sapovirus (PCR) Not Detected Stl Shigella/EIEC PCR Not Detected St Y.enterocolitica PCR Not Detected Stool Vibrio (PCR) Not Detected Stl Vibrio cholerae PCR Not Detected Stl Norovirus GI/GII PCR Not Detected C. difficile Tox B Gene 03/15/25 03/15/25 03/15/25 05:48 07:33 08:14 MCV 85.6 MCH 29.4 MCHC 34.4 RDW 12.4 Plt Count 226 D MPV 9.1 L Immature Gran % (Auto) Cancelled Neut % (Auto) Cancelled Lymph % (Auto) Cancelled Ralls % (Auto) Cancelled Eos % (Auto) Cancelled Baso % (Auto) Cancelled Lymph # (Auto) Cancelled Ralls # (Auto) Cancelled Eos # (Auto) Cancelled Baso # (Auto) Cancelled Abs Immat Gran (auto) Cancelled Absolute Neuts (auto) Cancelled Absolute Nucleated RBC 0.000 Nucleated RBC % (auto) 0.0 Neutrophils % (Manual) 41 L Band Neutrophils % 9 H Lymphocytes % (Manual) 18 L Atypical Lymphs % (Man) 5 Monocytes % (Manual) 24 H Eosinophils % (Manual) 1 Basophils % (Manual) 1 Metamyelocytes % 1 Abs Neuts (Manual) 2.2 Lymphocytes # (Manual) 0.8 L Atyp Lymphs # (Manual) 0.2 Monocytes # (Manual) 1.1 Eosinophils # (Manual) Basophils # (Manual) Metamyelocytes # Toxic Vacuolation PRESENT Platelet Estimate NORMAL Plt Morphology Comment NORMAL RBC Morphology NORMAL Ovalocytes 1+ (5-14) [place] Cells 3+ (>5) Acanthocytes (Spur) 2+ (3-5) Anion Gap 12 Estim Creat Clear Calc 33.6 Estimated GFR 26 POC Glucose 52 L* 162 H Random Glucose 41 L* Calcium 8.5 D Total Bilirubin 0.5 AST 13 ALT 7 Alkaline Phosphatase 91 Total Protein 5.9 L Albumin 3.6 Urine Color Urine Appearance Urine pH Ur Specific [place] Urine Protein Urine Glucose (UA) Urine Ketones Urine Blood Urine Nitrite Ur Leukocyte Esterase Urine RBC Urine WBC Ur Squamous Epith Cells Urine Bacteria Hyaline Casts Urine Osmolality Ur Random Sodium Ur Random Potassium Ur Random Chloride Stool Leukocytes, Qual Stl C. cayetanensis PCR Stool Rotavirus A PCR Stl Adenov F 40/41 PCR Stool Astrovirus (PCR) Stool Campylobacter PCR Stool Cryptosporidium PCR Stl Sh Tox Pr E STEC PCR Stool E coli O157 PCR Stl Enterotoxigenic E PCR Stool EPEC (PCR) Stool EAEC (PCR) Stl E. histolytica PCR Stool Giardia Lamblia PCR Stl P. shigelloides PCR Stool Salmonella PCR Stool Sapovirus (PCR) Stl Shigella/EIEC PCR St Y.enterocolitica PCR Stool Vibrio (PCR) Stl Vibrio cholerae PCR Stl Norovirus GI/GII PCR C. difficile Tox B Gene Assessment and Plan (1) Acute hyponatremia: Status: Acute (2) NANI (acute kidney injury): Status: Acute (3) Gastroenteritis: Status: Acute (4) Hypoglycemia associated with type 2 diabetes mellitus: Status: Acute Plan a 60-year-old male brought in by ambulance for evaluation of persistent nausea, vomiting, nonbloody watery diarrhea for about a week. Acute gastroenteritis CT scan report as above IV fluids IV Flagyl Stool panel pending Acute renal failure likely ATN , improving IVF, avoid nephrotoxic follow I\O and BMP acute Hyponatremia from dehydration, improving IV fluids follow BMP DMII with hypoglycemia responded to D50 Hold Lantus Continue SSI POC Lung nodules Small in size per CT needs outpatient follow up as outpatient in 12 months DVT PPx Lovenox The patient needs overnight hospital stay for treatment of acute gastroenteritis and renal failure Quality Stroke Does the patient have a stroke diagnosis?: No VTE Prior VTE?: No VTE Risk Level:: Medical - moderate - high VTE Device Contraindication: Treatment Not Indicated VTE Drug Contraindication: N/A - Med Ordered
[2025-03-15 11:40] LABS: Glucose, Whole Blood 138 mg/dL (60-115)
[2025-03-15 11:56] VITALS: BP 122/73; PULSE 62; RESP 16; TEMP 36.2; O2SAT 98
--- NOTE | 2025-03-15 14:13 | P.CDIM_ITS ---
PROVIDER RESPONSE TEXT: To clarify, the appropriate diagnosis supported by the clinical indicators: Diabetes mellitus Type 2 with hypoglycemia: probable QUERY TEXT: PHYSICIAN'S DOCUMENTATION REQUEST Date of Query: 03/15/2025 11:15 AM EDT Patient Name: Benny Cruz Admit Date: 03/14/2025 Dear Reynaldo May MD, A review of the medical record indicates additional documentation may be needed. Please review below and update the documentation accordingly. Clinical Indicators: LABS: POC glucose 54 L 52 L DMII Lantus, SSI, POC Please clarify if there is a diagnosis that correlates with these lab findings: Diabetes mellitus Type 2 with hypoglycemia possible, probable, suspected, cannot rule out etc. Other specified etiology of lab findings Other (explain) Clinically unable to determine (explain) Thank you, Lea Adames, CCS, CDIS Use of terms such as suspected, likely, concern for, or probable (associated with a specific diagnosi s that is being evaluated, monitored, or treated as if it exists) are acceptable and can be coded in the inpatient se tting, when documented at the time of discharge. Please use your independent medical judgment in providing your response. THIS QUERY IS PART OF THE PERMANENT MEDICAL RECORD
--- NOTE | 2025-03-15 14:13 | P.CDIM_ITS ---
PROVIDER RESPONSE TEXT: To clarify, the appropriate diagnosis supported by the clinical indicators: Acute QUERY TEXT: PHYSICIAN'S DOCUMENTATION REQUEST Date of Query: 03/15/2025 11:32 AM EDT Patient Name: Benny Cruz Admit Date: 03/14/2025 Dear Reynaldo May MD, A review of the medical record indicates additional documentation may be needed. Please review below and update the documentation accordingly. Clinical Indicators: ED 03/14/25 - Nausea/vomiting/diarrhea Weakness, persistent vomiting unable to keep any solid or fluids oral intake, dehydrated. Reevaluation: Acute gastroenteritis causing severe dehydration and NANI. Gastritis, start PPI and NPO for now. IV hydration with symptomatic treatment. Clarify which of the following accurately represents the acuity of the Gastritis, if agree? Possible options might include: Acute Acute on chronic Chronic Other (explain) Clinically unable to determine (explain) Thank you, Lea Adames, CCS, CDIS Use of terms such as suspected, likely, concern for, or probable (associated with a specific diagnosi s that is being evaluated, monitored, or treated as if it exists) are acceptable and can be coded in the inpatient se tting, when documented at the time of discharge. Please use your independent medical judgment in providing your response. THIS QUERY IS PART OF THE PERMANENT MEDICAL RECORD
[2025-03-15] MEDS: Enoxaparin Sodium 40 MG/0.4 ML SYRINGE SUBCUT (15:09)
[2025-03-15] MEDS: Doxycycline Hyclate 100 MG in 0.9 % Sodium Chloride 250 ML 166.67 MG IV (15:10)
[2025-03-15 16:07] VITALS: BP 128/71; PULSE 76; RESP 16; TEMP 36.6; O2SAT 97
[2025-03-15 16:32] LABS: Glucose, Whole Blood 114 mg/dL (60-115)
[2025-03-15 19:49] VITALS: BP 137/78; PULSE 86; RESP 16; TEMP 36.6; O2SAT 98
[2025-03-15 21:03] LABS: Glucose, Whole Blood 159 mg/dL (60-115)
[2025-03-15] MEDS: Mirtazapine 30 MG TABLET PO (22:07)
[2025-03-15] MEDS: Insulin Lispro 100 UNIT/ML 3 ML VIAL SUBCUT (22:07)
[2025-03-16] VITALS (7 sets, daily range): BP systolic 110–138; BP diastolic 60–80; PULSE 68–82; RESP 16–18; TEMP 36.1–37.1; O2SAT 95–98
[2025-03-16] MEDS: metroNIDAZOLE/NS 500 MG/100 ML PIGGYBACK 100 MG IV ×3 (00:54→16:29)
[2025-03-16] MEDS: Lactated Ringers 1,000 ML 100 ML IVCONT ×2 (00:54→12:22)
[2025-03-16] MEDS: 0.9 % Sodium Chloride Flush 3 ML SYRINGE IVFLUSH (00:58)
[2025-03-16] MEDS: Doxycycline Hyclate 100 MG in 0.9 % Sodium Chloride 250 ML 166.67 MG IV (02:02)
[2025-03-16 06:08] LABS: MANUAL DIFF FLAG NO
[2025-03-16 06:26] LABS: Basophils Absolute Auto 0.1 X10*3/uL (0.0-0.2); Basophils Percent Auto 1.5 % (0-2); Eosinophils Absolute Auto 0.1 X10*3/uL (0.0-0.4); Eosinophils Percent Auto 2.6 % (0-4); Hematocrit 36.8 % (42.0-52.0); Hemoglobin 12.8 g/dl (14.0-18.0); Imm Gran Abs Auto 0.03 X10*3/uL (0.00-0.03); Imm Gran Pct Auto 0.7 % (0.0-0.4); Lymphocytes Absolute Auto 1.2 X10*3/uL (1.2-4.9); Lymphocytes Percent Auto 26.4 % (20-40); Mean Corpuscular HGB Conc 34.8 g/dl (31.0-36.0); Mean Corpuscular Hemoglobin 29.4 pg (27.0-33.0); Mean Corpuscular Volume 84.4 fL (80.0-98.0); Mean Platelet Volume 8.9 fL (9.4-12.4); Monocytes Absolute Auto 0.8 X10*3/uL (0.1-1.2); Neutrophils Absolute Auto 2.3 x10*3/uL (2.0-8.3); Neutrophils Percent Auto 50.8 % (45-73); Platelet Count 221 X10*3/uL (160-400); Red Blood Count 4.36 X10*6/uL (4.60-5.80); Red Cell Distribution Width 12.3 % (11.0-16.0); White Blood Count 4.6 X10*3/uL (4.8-10.8)
[2025-03-16 06:33] LABS: Anion Gap 12 (12-20); Blood Urea Nitrogen 20 mg/dL (9-16); Calcium 8.2 mg/dL (8.4-10.2); Carbon Dioxide 23 mmol/L (22-29); Chloride 105 mmol/L (96-108); Creatinine Clr Calc Pharmacy 58.3; Estimated Glomerular Filt Rate 49; Glucose Random 125 mg/dL (60-115); Potassium 3.3 mmol/L (3.3-5.1); Sodium 137 mmol/L (135-145)
[2025-03-16 07:50] LABS: Glucose, Whole Blood 157 mg/dL (60-115)
[2025-03-16] MEDS: Insulin Lispro 100 UNIT/ML 3 ML VIAL SUBCUT ×4 (09:00→21:29)
--- NOTE | 2025-03-16 09:54 | HO.PM.IMPN ---
Subjective Subjective Date of Service: 03/16/25 Interval History: seen and evaluated feels little better diarrhea resolving Cr improving pending final culture no other events Review of Systems Review of Systems: Yes all other systems are reviewed and are negative Physical Exam Vital Signs: Vital Signs: Last Vital Signs Temp 98.7 F 03/16/25 07:19 Pulse 77 03/16/25 07:19 Resp 18 03/16/25 07:19 BP 138/76 03/16/25 07:19 Pulse Ox 96 03/16/25 07:19 O2 Del Method Room Air 03/16/25 07:19 BMI result Body Mass Index 21.3 Const: Other: Constitutional : Awake, interactive, not in distress Neck : Normal inspection, Supple Cardiovascular : RRR, no JVP, no lower extremity edema Respiratory : good bilateral air entry, no crackles, wheezes or rhonchi Gastrointestinal: soft, lax, Normal bowel sounds, generalized tenderness Skin : Warm, Dry Neurological : Alert & oriented x3, No focal deficit Objective Data Active Medications Acetaminophen (Acetaminophen 325 Mg Tablet) 650 mg PO Q6H PRN PRN Reason: Pain, Mild 1-3,fever,headache Calcium Carbonate (Calcium Carbonate 750 Mg Tab.Chew) 750 mg PO Q4H PRN PRN Reason: Heartburn Dextrose (Dextrose 50 % 25 Gm/50 Ml Syringe) 25 gm IVPUSH Q15M PRN; Protocol PRN Reason: per Hypoglycemia Standing Ord. Last Admin: 03/15/25 07:33 Dose: 25 gm Documented By: MILDRED Enoxaparin Sodium (Enoxaparin Sodium 40 Mg/0.4 Ml Syringe) 40 mg SUBCUT Q24H [facility] Last Admin: 03/15/25 15:09 Dose: 40 mg Documented By: MILDRED Lactated Ringer's (Lr) 1,000 mls @ 100 mls/hr IVCONT .Q10H [facility] Stop: 03/16/25 21:00 Last Admin: 03/16/25 09:02 Dose: Not Given Documented By: JOSE Non-Admin Reason: IV Running Metronidazole (Flagyl) 500 mg in 100 mls @ 100 mls/hr IV Q8H [facility] Last Admin: 03/16/25 09:01 Dose: 100 mls/hr Documented By: JOSE Doxycycline Hyclate 100 mg/ (Sodium Chloride) 250 mls @ 166.67 mls/hr IV Q12H [facility] Last Infusion: 03/16/25 03:32 Dose: Infused Documented By: LISY Insulin Glargine (Insulin Glargine,Hum.Rec.Anlog 100 Unit/Ml 10 Ml Vial) 10 unit SUBCUT BEDTIME [facility] On Hold: 03/15/25 07:45 Last Admin: 03/14/25 21:24 Dose: 10 unit Documented By: LISY Insulin Human Lispro (Insulin Lispro 100 Unit/Ml 3 Ml Vial) 0 unit SUBCUT QIDACHS [facility]; Protocol Last Admin: 03/16/25 09:00 Dose: 2 unit Documented By: JOSE Loperamide HCl (Loperamide Hcl 2 Mg Capsule) 2 mg PO Q4H PRN PRN Reason: diarrhea Magnesium Hydroxide (Milk Of Magnesia 30 Ml Oral.Susp) 30 ml PO DAILY PRN PRN Reason: Constipation Melatonin (Melatonin 3 Mg Tablet) 6 mg PO BEDTIME PRN PRN Reason: Insomnia Mirtazapine (Mirtazapine 30 Mg Tablet) 30 mg PO BEDTIME [facility] Last Admin: 03/15/25 22:07 Dose: 30 mg Documented By: LISY Ondansetron HCl (Ondansetron Hcl 4 Mg/2 Ml Vial) 4 mg IVPUSH Q8H PRN PRN Reason: Nausea and Vomiting Sodium Chloride (0.9 % Sodium Chloride Flush 3 Ml Syringe) 3 ml IVFLUSH QSHIFT [facility] Last Admin: 03/16/25 09:01 Dose: Not Given Documented By: JOSE Non-Admin Reason: IV Running Labs 03/16/25 06:06 03/16/25 06:06 Labs: Laboratory Results - last 24 hr 03/14/25 03/15/25 03/15/25 20:36 11:31 16:29 MCV MCH MCHC RDW Plt Count MPV Immature Gran % (Auto) Neut % (Auto) Lymph % (Auto) [place] % (Auto) Eos % (Auto) Baso % (Auto) Lymph # (Auto) [place] # (Auto) Eos # (Auto) Baso # (Auto) Abs Immat Gran (auto) Absolute Neuts (auto) Absolute Nucleated RBC Nucleated RBC % (auto) Anion Gap Estim Creat Clear Calc Estimated GFR POC Glucose 138 H 114 Random Glucose Calcium Stl C. cayetanensis PCR Not Detected Stool Rotavirus A PCR Not Detected Stl Adenov F 40/41 PCR Not Detected Stool Astrovirus (PCR) Not Detected Stool Campylobacter PCR Not Detected Stool Cryptosporidium PCR Not Detected Stl Sh Tox Pr E STEC PCR Not Detected Stool E coli O157 PCR Not applicable Stl Enterotoxigenic E PCR Not Detected Stool EPEC (PCR) Not Detected Stool EAEC (PCR) Not Detected Stl E. histolytica PCR Not Detected Stool Giardia Lamblia PCR Not Detected Stl P. shigelloides PCR Not Detected Stool Salmonella PCR Not Detected Stool Sapovirus (PCR) Not Detected Stl Shigella/EIEC PCR Not Detected St Y.enterocolitica PCR Not Detected Stool Vibrio (PCR) Not Detected Stl Vibrio cholerae PCR Not Detected Stl Norovirus GI/GII PCR Not Detected 03/15/25 03/16/25 03/16/25 20:59 06:06 07:23 MCV 84.4 MCH 29.4 MCHC 34.8 RDW 12.3 Plt Count 221 MPV 8.9 L Immature Gran % (Auto) 0.7 H Neut % (Auto) 50.8 Lymph % (Auto) 26.4 [place] % (Auto) 18.0 H Eos % (Auto) 2.6 Baso % (Auto) 1.5 Lymph # (Auto) 1.2 [place] # (Auto) 0.8 Eos # (Auto) 0.1 Baso # (Auto) 0.1 Abs Immat Gran (auto) 0.03 Absolute Neuts (auto) 2.3 Absolute Nucleated RBC 0.000 Nucleated RBC % (auto) 0.0 Anion Gap 12 Estim Creat Clear Calc 58.3 Estimated GFR 49 POC Glucose 159 H 157 H Random Glucose 125 H Calcium 8.2 L Stl C. cayetanensis PCR Stool Rotavirus A PCR Stl Adenov F 40/41 PCR Stool Astrovirus (PCR) Stool Campylobacter PCR Stool Cryptosporidium PCR Stl Sh Tox Pr E STEC PCR Stool E coli O157 PCR Stl Enterotoxigenic E PCR Stool EPEC (PCR) Stool EAEC (PCR) Stl E. histolytica PCR Stool Giardia Lamblia PCR Stl P. shigelloides PCR Stool Salmonella PCR Stool Sapovirus (PCR) Stl Shigella/EIEC PCR St Y.enterocolitica PCR Stool Vibrio (PCR) Stl Vibrio cholerae PCR Stl Norovirus GI/GII PCR Microbiology Microbiology Results: Microbiology 03/14/25 12:28 Blood Culture - Final Blood - Venous Coag negative Staphylococcus 03/14/25 12:28 Blood Culture - Preliminary Blood - Venous No growth after 24 hours. Assessment and Plan (1) Hypoglycemia associated with type 2 diabetes mellitus: Status: Acute (2) Gastroenteritis: Status: Acute (3) NANI (acute kidney injury): Status: Acute Plan a 60-year-old male brought in by ambulance for evaluation of persistent nausea, vomiting, nonbloody watery diarrhea for about a week. Acute gastroenteritis CT scan report as above continue IV fluids IV Flagyl Stool panel pending Positive blood culture GPC in 1 set , repeat pending continue Doxycycline for now Acute renal failure likely ATN , improving IVF, avoid nephrotoxic follow I\O and BMP acute Hyponatremia from dehydration, improving IV fluids follow BMP DMII with hypoglycemia responded to D50 Hold Lantus Continue SSI POC Lung nodules Small in size per CT needs outpatient follow up as outpatient in 12 months DVT PPx Lovenox The patient needs overnight hospital stay for treatment of acute gastroenteritis and renal failure Quality Stroke Does the patient have a stroke diagnosis?: No VTE Prior VTE?: No VTE Risk Level:: Medical - moderate - high VTE Device Contraindication: Treatment Not Indicated VTE Drug Contraindication: N/A - Med Ordered
[2025-03-16 11:33] LABS: Glucose, Whole Blood 187 mg/dL (60-115)
--- NOTE | 2025-03-16 11:44 | MHC.CM.PN ---
Per MD rounds patient is not medically cleared for dc. CM will continue to follow.
[2025-03-16 16:23] LABS: Glucose, Whole Blood 159 mg/dL (60-115)
[2025-03-16] MEDS: Enoxaparin Sodium 40 MG/0.4 ML SYRINGE SUBCUT (16:28)
[2025-03-16 20:15] LABS: Glucose, Whole Blood 181 mg/dL (60-115)
[2025-03-16] MEDS: Mirtazapine 30 MG TABLET PO (21:29)
[2025-03-16] MEDS: Insulin Glargine,Hum.rec.anlog 100 UNIT/ML 10 ML VIAL SUBCUT (21:31)
[2025-03-17] MEDS: metroNIDAZOLE/NS 500 MG/100 ML PIGGYBACK 100 MG IV ×2 (01:02→08:27)
[2025-03-17 03:24] VITALS: BP 111/56; PULSE 77; RESP 16; TEMP 36.3; O2SAT 96
[2025-03-17 06:30] LABS: Anion Gap 12 (12-20); Blood Urea Nitrogen 12 mg/dL (9-16); Calcium 8.5 mg/dL (8.4-10.2); Carbon Dioxide 29 mmol/L (22-29); Chloride 104 mmol/L (96-108); Creatinine Clr Calc Pharmacy 69.1; Estimated Glomerular Filt Rate 59; Glucose Random 182 mg/dL (60-115); Potassium 3.6 mmol/L (3.3-5.1); Sodium 141 mmol/L (135-145)
[2025-03-17 07:28] LABS: Glucose, Whole Blood 183 mg/dL (60-115)
[2025-03-17 07:52] VITALS: BP 126/73; PULSE 79; RESP 18; TEMP 36.8; O2SAT 97
[2025-03-17] MEDS: Insulin Lispro 100 UNIT/ML 3 ML VIAL SUBCUT ×2 (08:26→11:59)
--- NOTE | 2025-03-17 10:45 | PM.DS ---
DS: Providers Provider Date of Service: 03/17/25 Date of admission: 03/14/25 15:40 Date of discharge: 03/17/25 Primary care physician: Rudolph Metcalf III, MD DS: Diagnosis Discharge Diagnosis (1) Hypoglycemia associated with type 2 diabetes mellitus: Status: Acute (2) Gastroenteritis: Status: Acute (3) NANI (acute kidney injury): Status: Acute (4) Lung nodules: Status: Acute (5) Acute hyponatremia: Status: Acute (6) Dehydration: Status: Acute DS: Summary Hospital Course Hospital Course: Admission note HPI A 60 years old male with PMH of DMII, HTN who presents to ED with 1 week history of nausea, vomiting, diarrhea and abdominal pain since coming [place] vacation [place] [facility] [place]. He reports nausea and vomiting could not allow him to drink or eat for few days while he has been goind frequently to the bathroom for diarrhea. water, brownish in color. No fever, chest pain, palpitations, SOB, or urinary symptoms. Did not seen blood in stool or with vomiting. Feels tired and fatigued. His mother was with him in trip and got similar symptoms but resolved. In ED found to have Cr of 3 which is new along with low sodium level. Abd CT showing possible gastroenteritis. CT also reports lung nodules that needs follow up in 12 months. admitted for further work up and treatment. Hospital course # Acute gastroenteritis. CT scan reported suggestive enteritis. Kept on IV fluids. Treated with IV Flagyl .Stool panel negative. to finish 1 week of Flagyl. was able to tolerate diet. # Positive blood culture, contaminent with CoAg -ve Staph in 1 set , repeat negative. Kept on Doxycycline. No need for antibiotics on discharge. # Acute renal failure likely ATN resolved with IVF, avoidance of nephrotoxic. # acute Hyponatremia from dehydration, resolved with IV fluids and improved oral intake. # DMII with hypoglycemia. responded to D50. Restarted on small dose Lantus. Asked to increase it gradually at home. He is on Lantus, Metformin and Glipizide. # Lung nodules. Small in size per CT. needs outpatient follow up as outpatient in 12 months to repeat if needed by PCP Discharge plan Decrease Lantus to 15 units for tomorrw and increase it to 24 if needed over the next 3 days Flagyl for 4 more days Increase fluid intake and stay well hydrated Follow with PCP to decide on repeating CT chest in 1 year for evaluation of lung nodules if needed Time Attestation Discharge Coordination Time (in mins): 38 Quality: Safe Use of Opioids Does Pt have an Active Cancer Diagnosis on the Problem List?: No Quality: Stroke Does the patient have a stroke diagnosis?: No Physical Exam Vital Signs: Vital Signs: Last Vital Signs Temp 98.3 F 03/17/25 07:52 Pulse 79 03/17/25 07:52 Resp 18 03/17/25 07:52 BP 126/73 03/17/25 07:52 Pulse Ox 97 03/17/25 07:52 O2 Del Method Room Air 03/17/25 07:52 BMI result Body Mass Index 21.3 Const: Other: Constitutional : Awake, interactive, not in distress Neck : Normal inspection, Supple Cardiovascular : RRR, no JVP, no lower extremity edema Respiratory : good bilateral air entry, no crackles, wheezes or rhonchi Gastrointestinal: soft, lax, Normal bowel sounds, no more tenderness Skin : Warm, Dry Neurological : Alert & oriented x3, No focal deficit DS: Data Data Completed and Pending Labs on day of discharge: Laboratory Results - last 24 hr 03/16/25 03/16/25 03/16/25 11:27 16:20 20:00 Hold Purple Top Sodium Potassium Chloride Carbon Dioxide Anion Gap BUN Creatinine Estim Creat Clear Calc Estimated GFR POC Glucose 187 H 159 H 181 H Random Glucose Calcium 03/17/25 03/17/25 05:43 07:19 Hold Purple Top SEE NOTE Sodium 141 Potassium 3.6 Chloride 104 Carbon Dioxide 29 Anion Gap 12 BUN 12 Creatinine 1.24 Estim Creat Clear Calc 69.1 Estimated GFR 59 POC Glucose 183 H Random Glucose 182 H Calcium 8.5 Preliminary micro results at discharge 03/15/25 15:07 Blood Culture - Preliminary Blood - Venous No growth after 24 hours. 03/15/25 15:07 Blood Culture - Preliminary Blood - Venous No growth after 24 hours. 03/14/25 12:28 Blood Culture - Preliminary Blood - Venous No growth after 48 hours. Imaging Chest x-ray: Radiologist's impression: ITS Impressions Abdomen/Pelvis CT 03/14/25 12:57 IMPRESSION: Fluid is evident throughout the small bowel and in the rectum. This is nonspecific finding but could relate to a gastroenteritis. 2 mm nonobstructing stone, upper left kidney. Lumbar spine degenerative disc disease and facet arthropathy. Changes from ventral hernia repair without recurrence. Multiple small subpleural pulmonary nodules are present in the lung bases, left greater than right. The largest is on the left and measures 3 x 5 mm. No further follow-up is indicated per Fleischner Society recommendations, unless the patient falls into a high risk category, in which case a 12 month follow-up CT chest without contrast is optional. High risk patients includes those with a history of smoking, first-degree relative with lung cancer, or exposure to uranium, radon, or asbestos. Electronically signed by: Fredis Murrieta MD 03/14/2025 03:03 PM EDT RP Discharge Plan Discharge Anticipated Discharge Date/Time: 03/17/25 10:39 Patient Disposition: Home, Self-Care Discharge Diagnosis: Gastroenteritis Referrals: Rudolph Metcalf III, MD [Primary Care Provider, Medical] - 1 Week Discharge Medications: New metronidazole 250 mg tablet 250 mg PO TID Qty: 12 0RF Continued propranolol 60 mg tablet 120 mg PO DAILY mirtazapine 30 mg tablet 30 mg PO BEDTIME metformin 1,000 mg tablet 1,000 mg PO BID insulin glargine [Basaglar KwikPen U-100 Insulin] 100 unit/mL (3 mL) insulin pen 24 unit subcut BEDTIME glipizide 5 mg tablet 10 mg PO DAILY Discharge Orders: Discharge Order (Routine); Ordered 03/17/25 Ordered By: Reynaldo May Diet: Diabetic diet Activity on Discharge: As tolerated Stand Alone Forms: Patient Portal Discharge page Print Language: Kyrgyz Care Plan Goals: Decrease Lantus to 15 units for tomorrw and increase it to 24 if needed over the next 3 days Flagyl for 4 more days Increase fluid intake and stay well hydrated Follow with PCP to decide on repeating CT chest in 1 year for evaluation of lung nodules if needed Health Concerns: Gastroenteritis Acute kidney injury Plan of Treatment: Flagyl Fluids Assessment: as above
--- NOTE | 2025-03-17 10:46 | MHC.CM.PN ---
Per MD patient medically cleared for dc home self care. Mother to transport at 12:30pm. RN aware.
[2025-03-17 11:31] LABS: Glucose, Whole Blood 283 mg/dL (60-115)
[2025-03-17 12:00] VITALS: BP 120/75; PULSE 96; RESP 18; TEMP 36.7; O2SAT 94
--- NOTE | 2025-03-17 16:37 | P.CDIM_ITS ---
PROVIDER RESPONSE TEXT: To clarify, the appropriate diagnosis supported by the clinical indicators: Acute Gastroenteritis: infectious QUERY TEXT: PHYSICIAN'S DOCUMENTATION REQUEST Date of Query: 03/17/2025 10:28 AM EDT Patient Name: Benny Cruz Admit Date: 03/14/2025 Dear Reynaldo May MD, A review of the medical record indicates additional documentation may be needed. Please review below and update the documentation accordingly. Clinical Indicators: Progress note 03/16/25 - Acute Gastroenteritis. CT scan Continue IV fluids IV Flagyl Patient with persistent nausea, vomiting, non-bloody watery diarrhea for about a week. Clarify which of the following accurately represents further specifics to the documented Acute Gastroenteritis, if known: Possible options might include: Acute Gastroenteritis Infectious, toxic, viral, allergic, drug-induced etc. Other specified Other (explain) Clinically unable to determine (explain) Thank you, Lea Adames, CCS, CDIS Use of terms such as suspected, likely, concern for, or probable (associated with a specific diagnosis that is being evaluated, monitored, or treated as if it exists) are acceptable and can be coded in the inpatient setting, when documented at the time of discharge. Please use your independent medical judgment in providing your response. THIS QUERY IS PART OF THE PERMANENT MEDICAL RECORD
== END 2025-03-17 13:07 | disposition home or self-care (01) | DRG 391 ==
LOC: HO.ED 15:54 → HO.EDOVER 16:35 → HO.S3 19:43
PROVIDERS: Admitting Provider Student in an Organized Health Care Education/Training Program; Emergency Provider Emergency Medicine; PCP Internal Medicine; Visit Provider Student in an Organized Health Care Education/Training Program
DX: A09 Infectious gastroenteritis and colitis, unspecified (principal); N17.0 Acute kidney failure with tubular necrosis; E87.1 Hypo-osmolality and hyponatremia; E11.649 Type 2 diabetes mellitus with hypoglycemia without coma; R91.8 Other nonspecific abnormal finding of lung field; E86.0 Dehydration; Z79.4 Long term (current) use of insulin; Z79.84 Long term (current) use of oral hypoglycemic drugs; Z79.899 Other long term (current) drug therapy
CPT/HCPCS: 36415; 74176; 80048; 80053; 81001; 82436; 82947; 83735; 83935; 84133; 84300; 85007; 85025; 85027; 87040; 87147; 87205; 87493; 87507; 89055; 93005; 99285; J1271; J1650; J1836; J1956; J2405; J2470; J7120

== ENCOUNTER → 2025-03-14 10:19 | Outpatient (BNV) | payer MEDICARE, SELFPAY | PROVIDERS: Admitting Provider Student in an Organized Health Care Education/Training Program; Emergency Provider Emergency Medicine; PCP Internal Medicine; Visit Provider Internal Medicine Cardiovascular Disease | DX: I45.10 Unspecified right bundle-branch block (principal) | CPT/HCPCS: 93010 ==

== ENCOUNTER → 2025-03-14 11:32 | Outpatient (BNV) | payer MEDICARE, SELFPAY | PROVIDERS: Emergency Provider Emergency Medicine; PCP Internal Medicine; Visit Provider Radiology Diagnostic Radiology | DX: N20.0 Calculus of kidney (principal); M51.369 Other intervertebral disc degeneration, lumbar region without mention of lumbar back pain or lower extremity pain; R18.8 Other ascites; R91.8 Other nonspecific abnormal finding of lung field | CPT/HCPCS: 74176 ==

== ENCOUNTER → 2025-03-14 15:40 | Outpatient (BNV) | payer MEDICARE, SELFPAY | PROVIDERS: Admitting Provider Student in an Organized Health Care Education/Training Program; Emergency Provider Emergency Medicine; PCP Internal Medicine; Visit Provider Student in an Organized Health Care Education/Training Program | DX: E11.649 Type 2 diabetes mellitus with hypoglycemia without coma (principal); K52.9 Noninfective gastroenteritis and colitis, unspecified; N17.9 Acute kidney failure, unspecified; R91.8 Other nonspecific abnormal finding of lung field; E87.1 Hypo-osmolality and hyponatremia; E86.0 Dehydration | CPT/HCPCS: 99223; 99232; 99239 ==

== ENCOUNTER 2025-09-23 09:31 | Outpatient (AMB) | payer MEDICARE, SELFPAY ==
--- OUTSIDE RECORDS SUMMARY | 2025-09-19 08:30 | XMS_ITS | Encounter Summary ---
Author Organization [facility] Address [address] [place] [address] Care Team Providers Care Knuckle Bender Name Role Phone Rudolph Metcalf MD Primary Care Provider [phone] Reason for Visit * Reason Comments Diabetes Mellitus F/u dm Encounter Details Date Type Department Care Team (Late st Contact Info) Description 09/19/2025 8:30 AM EST Office Visit Endocrinology - [place] [address] [place] [phone] Gabrielle Almodovar PA [address] [place] [address] DM (diabetes mellitus), type 2 with peripheral vascular complications (CMS/HCC V24, CMS/HCC V28) (Primary Dx); Hypertension, unspecified type; Hyperlipidemia, unspecified hyperlipidemia type Social History Tobacco Use Types Packs/Day Years Used Date Smoking Tobacco: Former Cigarettes 0.8 Q uit: 09/29/2006 Smokeless Tobacco: Never Alcohol Use Standard Drinks/Week Comments Yes 0 (1 standard drink = 0.6 oz pur e alcohol) Sex and Gender Information Value Date Recorded Sex Assigned at Not on file Legal Sex Male 12:28 AM EST Gender Identity Not on file Sexual Orientation Not on file documented as of this encounter Last Filed Vital Signs Vital Sign Reading Time Taken Comments Blood Pressure 137/80 09/19/2025 8:13 AM EST Pulse 59 09/19/2025 8:13 AM EST Temperature - - Respiratory Rate 15 09/19/2025 8:13 AM EST Oxygen Saturation - - Inhaled Oxygen Concentration - - Weight 84.8 kg (187 lb) 09/19/2025 8:13 AM EST Height 193 cm (6' 4 ) 09/19/2025 8:13 AM EST Body Mass Index 22.76 09/19/2025 8:13 AM EST documented in this encounter Ordered Prescriptions Prescription Sig Dispense Quantity Refills Last Filled Start Date End Date blood-glucose sensor, Freestyle Enoc 3 Plus, (FreeStyle Enoc 3 Plus Sensor) Apply 1 sensor and change every 15 days. Use one sensor every 15 days E11.9 6 each 1 09/19/2025 documented in this encounter Progress Notes * WILI Webb - 09/19/2025 8:30 AM EST CHIEF COMPLAINT: Diabetes Mellitus (F/u dm) IDENTIFIER: Benny Cruz is a 60 y.o. old male HPI: Patient is a 60-year-old male who presents today for a follow-up on diabetes. Current diabetic regimen: Metformin 1000mg twice daily Glipizide 5 mg twice daily Lantus 24 units once at bedtime Fasting sugars are generally in the 60s -low 100s. This morning at 64 Patient follows a diabetic friendly diet, is fairly active throughout the day. Follows podiatry Denies any open sores or lesions Up-to-date on eye exam. Blood pressure today at 137/80 Renal function stable. Patient is on propranolol. (-) microalbumin urine test. Hyperlipidemia is diet controlled. LDL at 59 with total cholesterol of 109 No polyuria, polydipsia. No abdominal pain, nausea or vomiting Lab Results Component Value Date HGBA1C 7.1 (H) 06/01/2025 ROS: GENERAL: No malaise HEENT: No changes in hearing or vision RESPIRATORY: No cough, wheezing or shortness of breath CARDIOVASCULAR: No chest pain, leg swelling or palpitations GI: No abdominal discomfort ENDO: see HPI NEURO: No persistent headache, syncope PAST MEDICAL HISTORY: Patient Active Problem List Diagnosis Date Noted Vitiligo 07/23/2018 Essential tremor 07/23/2018 Mood disorder (CMS/HCC V24) 06/18/2018 Osteophyte determined by x-ray 03/27/2018 Osteoarthritis of right hand 03/27/2018 Incisional hernia, without obstruction or gangrene 04/11/2016 Erectile dysfunction 09/21/2015 DM (diabetes mellitus), type 2 with peripheral vascular complications ([facility] V24, [facility] V28) 09/21/2015 Hypertension 09/21/2015 Hyperlipidemia 09/21/2015 Insomnia 09/21/2015 Migraines 09/21/2015 Lumbago 02/17/2006 Past Surgical History: Procedure Laterality Date COLONOSCOPY 2.01.11 PROCEDURE: HISTORICAL COLONOSCOPY; COMMENT: polyp HERNIA REPAIR 1965 PROCEDURE: HISTORICAL HERNIA REPAIR/ING KNEE SURGERY Right PROCEDURE: HISTORICAL KNEE SURGERY LEG SURGERY Left 1977 PROCEDURE: HISTORICAL LEG SURGERY; COMMENT: right femur - steel plates OTHER SURGICAL HISTORY PROCEDURE: EMERGENCY TRACHEOTOMY; COMMENT: at age 14 reversed now SOCIAL HISTORY: Social History Tobacco Use Smoking status: Former Current packs/day: 0.00 Average packs/day: 0.8 packs/day Types: Cigarettes Quit date: 09/29/2006 Years since quittin.9 Smokeless tobacco: Never Substance Use Topics Alcohol use: Yes FAMILY HISTORY: Family History Problem Relation Name Age of Onset Other cancer Mother diabetes Other (Other: Other) Father Alive and well Family Status Relation Name Status Mother Alive Father Alive No partnership data on file MEDICATIONS DISCONTINUED/REORDERED: Medications Discontinued During This Encounter Medication Reason glipiZIDE (GLUCOTROL) 5 mg tablet Reorder insulin glargine,hum.rec.anlog (Basaglar KwikPen U-100 Insulin) 100 unit/mL (3 mL) injection pen Reorder ACTIVE MEDICATIONS: Outpatient Medications Marked as Taking for the 09/19/25 encounter (Office Visit) with WILI Webb Medication Sig Dispense Refill Alcohol Prep Pads pads, medicated USE DIRECTED THREE TIMES DAILY 300 each 1 BD Ultra-Fine Short Pen Needle 31 gauge x 5/16 needle USE TO INJECT INSULIN UNDER THE SKIN EVERY NIGHT AT BEDTIME 100 each 5 blood glucose control, normal (OneTouch Ultra Control) solution Blood Glucose Calibration (OT ULTRA/FASTTK CNTRL SOLN) Solution blood sugar diagnostic (OneTouch Verio test strips) test strip Use this to check blood sugar once aday 100 each 1 blood-glucose meter (OneTouch Verio Flex meter) [facility] Use this monitor to check blood sugars three times a day 1 each 0 glipiZIDE (GLUCOTROL) 5 mg tablet TAKE 1 tab with breakfast ibuprofen (ADVIL,MOTRIN) 600 mg tablet TAKE 1 TABLET BY MOUTH THREE TIMES DAILY NEEDED FOR PAIN insulin glargine,hum.rec.anlog (Basaglar KwikPen U-100 Insulin) 100 unit/mL (3 mL) injection pen Use 24 units at bedtime, reduce to 20-22 units if fasting sugars are persistently below 80 lancets (OneTouch Delica Plus Lancet) 30 gauge Use to check blood sugar once daily 100 each 1 lanolin mrfwjet-ke-f.pet-ceres (Eucerin) cream Lotion feet daily 100 g 0 metFORMIN (GLUCOPHAGE) 1,000 mg tablet TAKE 1 TABLET(1000 MG) BY MOUTH TWICE DAILY WITH MEALS 180 tablet 1 mirtazapine (REMERON) 30 mg tablet Take 1 tablet (30 mg total) by mouth at bedtime. 90 tablet 1 propranoloL (INDERAL) 60 mg tablet TAKE 1 TABLET BY MOUTH EVERY DAY FOR 10 DAYS THEN TAKE 1 TABLET BY MOUTH TWICE DAILY FOR 30 DAYS DIRECTED (Patient taking differently: Take 2 tablets (120 mg total) by mouth 1 (one) time each day in the morning.) propranolol LA (Inderal LA) 60 mg 24 hr capsule Take 2 capsules (120 mg total) by mouth 1 (one) time each day. Do not crush, chew, or split. 90 each 1 wnite petrolatum-mineral (EUCERIN) cream Apply topically if needed for wound care. 397 g 0 [DISCONTINUED] glipiZIDE (GLUCOTROL) 5 mg tablet TAKE 1 tab with breakfast and 1 tab with dinner 180 tablet 1 [DISCONTINUED] insulin glargine,hum.rec.anlog (Basaglar KwikPen U-100 Insulin) 100 unit/mL (3 mL) injection pen ADMINISTER 24-26 UNITS UNDER THE SKIN AT BEDTIME 15 mL 5 ALLERGIES: Patient has no known allergies. PHYSICAL EXAM: Blood pressure 137/80, pulse 59, resp. rate 15, height 1.93 m (76 ), weight 84.8 kg (187 lb). Body mass index is 22.76 kg/m??. BMI is greater than 25.0 (above the normal range) - see Plan APPEARANCE: Alert and in no acute distress HEART: RRR LUNG: clear to auscultation NEURO: Awake, alert LABS: Lab Results Component Value Date HGBA1C 7.1 (H) 06/01/2025 HGBA1C 7.6 (H) 02/02/2025 HGBA1C 6.9 (H) 08/04/2024 Lab Results Component Value Date MICROALBUR 25.8 06/01/2025 LDLCALC 59 06/01/2025 CREATININE 1.15 06/01/2025 MICROALBCREA 25 06/01/2025 Lab Results Component Value Date GLUCOSE 122 (H) 06/01/2025 IMAGING: IMPRESSION: 1. DM (diabetes mellitus), type 2 with peripheral vascular complications ([facility] V24, [facility] V28) 2. Hypertension, unspecified type 3. Hyperlipidemia, unspecified hyperlipidemia type PLAN: Diabetes: Last A1c 7.1%, recheck now. To address nocturnal hypoglycemia, glipizide discontinued in the evening. No change to metformin new. in case episodes persist, he will reduce Lantus by 2 to 4 units. Examples given. He can continue with glipizide in the morning for now. Monitor for hypoglycemia. Discussed diabetic friendly diet. He will eliminate sugary snacks and drinks. Increase protein in take. Eat in regular intervals. He is fairly active. Will continue to monitor sugars. Blood pressure control reasonable, low-salt diet LD at goal. Not on statin. (+) microalbumin urine test. Eye exam: Up-to-date Myself and my colleagues maintained a long-term, longitudinal relationship with this patient, overseeing care of chronic conditions including diabetes, hyperlipidemia and hypertension. This care relationship has significantly influence my decision making and treatment plans during today's encounter. Return here in 3-4 months for reevaluation of diabetes. Medication and lab orders: Orders Placed This Encounter Procedures Hemoglobin A1c Basic metabolic panel None WILI Ramsey on 09/19/2025 at 1:15 PM EST documented in this encounter Plan of Treatment Upcoming Encounters Date Type Department Care Team (Late st Contact Info) Description 12/21/2025 9:00 AM EDT Office Visit Endocrinology - [place] [address] [place] [phone] Gabrielle Almodovar PA [address] [place] [address] 12/22/2025 9:45 AM EDT Office Visit Adult Medicine [facility] [address], [place] [phone] Rudolph Metcalf MD [address] [place] [address] 07/26/2026 10:00 AM EDT Office Visit Orthopedic Surgery - [place] [address] [phone] Momo Majano, DPM [address] [phone] Scheduled Orders Name Type Priority Associated Diagnoses Orde r Schedule Hemoglobin A1c Lab Routine DM (diabetes mellitus), type 2 with peripheral vascular complications ([facility] V24, [facility] V28) Expected: 12/18/2025, Expires: 09/19/2026 Basic metabolic panel Lab Routine DM (diabetes mellitus), type 2 with peripheral vascular complications ([facility] V24, [facility] V28) Expected: 12/18/2025, Expires: 09/19/2026 documented as of this encounter Visit Diagnoses Diagnosis DM (diabetes mellitus), type 2 with peripheral vascular complications ([facility] V24, [facility] V28)- Primary Type II or unspecified type diabetes mellitus with peripheral circulatory disorders, not stated as uncontrolled Hypertension, unspecified type Hyperlipidemia, unspecified hyperlipidemia type documented in this encounter Discontinued Medications Medication Sig Discontinue Reason Start Date End Da te glipiZIDE (GLUCOTROL) 5 mg tablet TAKE 1 tab with breakfast and 1 tab with dinner Reorder 04/06/2025 09/19/2025 insulin glargine,hum.rec.anlog (Basaglar KwikPen U-100 Insulin) 100 unit/mL (3 mL) injection pen ADMINISTER 24-26 UNITS UNDER THE SKIN AT BEDTIME Reorder 06/01/2025 09/19/2025 documented as of this encounter Historical Medications * This list may reflect changes made after this encounter. insulin glargine,hum.rec .anlog (Basaglar KwikPen U-100 Insulin) 100 unit/mL (3 mL) injection pen Use 24 units at bedtime, reduce to 20-22 units if fasting sugars are persistently below 80 09/19/2025 glipiZIDE (GLUCOTROL) 5 mg tablet TAKE 1 tab with breakfast 09/19/2025 added in this encounter Care Teams Knuckle Bender Relationship Specialty Start Date End Date Rudolph Metcalf MD [address] [place] [phone] PCP - General Internal Medicine 08/03/05 documented as of this encounter
--- OUTSIDE RECORDS SUMMARY | 2025-09-23 09:34 | XMS_ITS | Clinical Summary ---
Author Organization [facility] Address [address] [place] [address] [place] [phone] Phone Care Team Providers Care Cds Sales Advisor Name Role Phone Rudolph Metcalf MD Primary Care Provider + Allergies No known active allergies Medications glipiZIDE (GLUCOTROL) 5 MG tablet TAKE 1 tab with breakfast and 1 tab with dinner 4 Active BASAGLAR KWIKPEN U-100 INSULIN 100 unit/mL (3 mL) InPn injection pen INJECT 24 UNITS UNDER THE SKIN AT BEDTIME Active metFORMIN (GLUCOPHAGE) 1000 MG immediate release tablet Take 1,000 mg by mouth 2 (two) times a day with meals. 4 Active mirtazapine (REMERON) 30 MG tablet Take 30 mg by mouth. 4 Active propranoloL (INDERAL) 60 MG immediate release tablet 120 mg. 4 Active Encounters Date Type Department Care Team Description 08/18/2025 9:30 AM EST Office Visit [facility] [address] [place] [address] Chase Mathews MD Essential tremor (Primary Dx); History of traumatic brain injury 07/27/2025 Documentation [facility] [address] [facility] [place] [place] [id number] Lewis Sawant PA-C from Last 3 Months Immunizations Immunization Administration Dates Next Due Influenza Quadrivalent MDCK Preservative Free IM 10/09/2021,06/01/2020 Influenza Quadrivalent MDCK w/Preservative IM Influenza Quadrivalent Preservative Free IM 04/2015 Influenza Quadrivalent w/ Preservative IM 2018 Pneumococcal conjugate PCV21 12/31/2024 Pneumococcal polysaccharide PPSV23 10/24/2009 RSV Vaccine (bivalent) 12/31/2024 Td (adult),2 Lf Tetanus Toxoid, PF, Adsorbed Tdap 09/29/2007 Zoster recombinant 08/06/2019,06/07/2019 Social History Tobacco Use Types Packs/Day Years Used Date Smoking Tobacco: Never Assessed Education Answer Date Recorded Are you interested in more education? Not on devorah e 10/12/2024 Are you concerned about learning? Not on file 10/12/2024 No 10/12/2024 No 10/12/2024 Digital Access Answer Date Recorded No 10/12/2024 No 10/12/2024 Reliable internet access at home? Not on file 10/12/2024 Device with a working camera? Not on file Sex and Gender Information Value Date Recorded Sex Assigned at Male 10/12/2024 10:42 AM EST Legal Sex Male 10:24 AM EST Gender Identity Male 10/12/2024 10:42 AM EST Sexual Orientation Not on file Last Filed Vital Signs Vital Sign Reading Time Taken Comments Blood Pressure 112/64 08/18/2025 9:09 AM EST Pulse 70 08/18/2025 9:09 AM EST Temperature 36.3 C (97.3 F) 10/12/2024 3:26 PM EST Respiratory Rate 18 10/12/2024 3:26 PM EST Oxygen Saturation 98% 08/18/2025 9:09 AM EST Inhaled Oxygen Concentration - - Weight 92 kg (202 lb 12.8 oz) 10/12/2024 10:44 A M EST Height 193 cm (6' 4 ) 10/12/2024 10:44 AM EST Body Mass Index 24.69 10/12/2024 10:44 AM EST Plan of Treatment Health Maintenance Due Date Last Done Comments DEPRESSION SCREENING 1975 SMOKING Hx and SMOKELESS TOBACCO SCREENING 02/11/1976 HIV ONE-TIME SCREENING (18-65 YEARS) 1981 COLOGUARD 02/11/2008 COLONOSCOPY 02/11/2008 COLORECTAL CANCER SCREENING 02/11/2008 FIT TEST 02/11/2008 FOBT 02/11/2008 SIGMOIDOSCOPY 02/11/2008 VIRTUAL COLONOSCOPY 02/11/2008 INFLUENZA VACCINE (#1) 2025 , 06/01/2020, 06/07/2019, Additional history exists COVID-19 VACCINE (2024- season) 2025 02/20/2021, 01/23/2021 CREATININE LEVEL 10/12/2025 10/12/2024 Adult Td,Tdap Booster 02/14/2028 02/13/2018, 008 LIPID PANEL 06/01/2030 06/01/2025, 11/13/2023 HEPATITIS C SCREENING Completed 10/12/2015 ZOSTER VACCINES Completed 08/06/2019, 06/07/2019 PNEUMOCOCCAL VACCINES (50+ years) Completed 12/31/2024, 10/24/2009 RSV VACCINE Completed 12/31/2024 HEPATITIS A VACCINES Aged Out No long er eligible based on patient's age to complete this topic HIB VACCINES Aged Out No longer eligi ble based on patient's age to complete this topic MENINGOCOCCAL VACCINES (ACWY) Aged Out No longer eligible based on patient's age to complete this topic MENINGOCOCCAL VACCINES (B) Aged Out N o longer eligible based on patient's age to complete this topic Medical Devices Not on file Procedures Procedure Name Priority Date/Time Associated Diagnosis Comments BASIC METABOLIC PANEL (BMP) STAT 10/12/2024 1:15 PM EST OUTSIDE HEPATITIS C VIRUS SCREENING Routine 10/12/2015 from Last 3 Months or Most Recently Relevant to Health Maintenance Results * (ABNORMAL) Basic metabolic panel (10/12/2024 1:15 PM EST) SODIUM 140 133 - 146 mmol/L [facility] CHLORIDE 105 96 - 108 mmol/L [facility] POTASSIUM 4.5 3.3 - 5.1 mmol/L [facility] CO2 26 21 - 35 mmol/L [facility] BUN 11 6 - 19 mg/dL [facility] CREATININE 1.00 0.5 - 1.5 mg/dL [facility] GLUCOSE 120(H) 70 - 99 mg/dL [facility] CALCIUM 9.4 8.4 - 10.3 mg/dL [facility] EGFR 86 >59 mL/min/1.7 3m2 [facility] Comment:Estimated glomerular filtration rate calculated using the CKD-EPI refit equation. ANION GAP 14 10 - 20 mmol/L [facility] Blood 10/12/2024 1:15 PM EST 10/12/2024 1:34 PM EST us Belinda Pepe PA-C LAB BLOOD BKR ORDERABLES Fi nal Result [facility] [address] [place] [address] * Outside Hepatitis C Virus Screening (10/12/2015) Hepatitis C Screening - External Neg us Historical Provider LAB BLOOD ORDERABLES Judy l Result from Last 3 Months or Most Recently Relevant to Health Maintenance Insurance [address] [place] [address] [employer] PPO MEDICARE REPLACEMENT AET[employer] O MEDICARE REPLACEMENT A[employer] PPO MEDICARE REPLACEMENT [employer] PPO MEDICARE REPLACEMENT [employer] PPO MEDICARE REPLACEMENT [employer] PPO MEDICARE REPLACEMENT Care Teams Cds Sales Advisor Relationship Specialty Start Date End Date Rudolph Metcalf MD [address] [place] [address] PCP - General Internal Medicine 10/12/24 Additional Source Comments The information contained in this document represents components of the legal health record. It is not the complete legal health record.[facility]
--- OUTSIDE RECORDS SUMMARY | 2025-09-23 09:35 | XMS_ITS | Clinical Summary ---
Author Organization [address] [facility] Address [address] [place] [address] Phone Care Team Providers Care Operations Representative Name Role Phone Rudolph Metcalf MD Primary Care Provider [phone] Allergies No known active allergies Medications ibuprofen (ADVIL,MOTRIN) 600 mg tablet TAKE 1 TABLET BY MOUTH THREE TIMES DAILY NEEDED FOR PAIN 05/05/20 21 Active blood glucose control, normal (OneTouch Ultra Control) solution Blood Glucose Calibration (OT ULTRA/FASTTK CNTRL SOLN) Solution Active propranoloL (INDERAL) 60 mg tablet TAKE 1 TABLET BY MOUTH EVERY DAY FOR 10 DAYS THEN TAKE 1 TABLET BY MOUTH TWICE DAILY FOR 30 DAYS DIRECTED Active wnite petrolatum-minera l (EUCERIN) cream Apply topically if needed for wound care. 397 g 11/30/19 25 026 Active lanolin tekrwos-ed-f.pet- ceres (Eucerin) cream Lotion feet daily 100 g 11/30/19 25 Active blood-glucose meter (OneTouch Verio Flex meter) miscIndications:D M (diabetes mellitus), type 2 with peripheral vascular complications (CMS/HCC V24, CMS/HCC V28) Use this monitor to check blood sugars three times a day 1 each 12/17/19 25 Active BD Ultra-Fine Short Pen Needle 31 gauge x 5/16 needleIndications :DM (diabetes mellitus), type 2 with peripheral vascular complications (CMS/HCC V24, CMS/HCC V28) USE TO INJECT INSULIN UNDER THE SKIN EVERY NIGHT AT BEDTIME 100 each 5 03/25/20 25 Active Alcohol Prep Pads pads, medicated USE DIRECTED THREE TIMES DAILY 300 each 1 06/03/20 25 Active mirtazapine (REMERON) 30 mg tablet Take 1 tablet (30 mg total) by mouth at bedtime. 90 tablet 1 06/01/20 25 Active propranolol LA (Inderal LA) 60 mg 24 hr capsule Take 2 capsules (120 mg total) by mouth 1 (one) time each day. Do not crush, chew, or split. 90 each 1 06/01/20 25 026 Active metFORMIN (GLUCOPHAGE) 1,000 mg tablet TAKE 1 TABLET(1000 MG) BY MOUTH TWICE DAILY WITH MEALS 180 tablet 1 07/28/20 25 Active lancets (OneTouch Delica Plus Lancet) 30 gauge Use to check blood sugar once daily 100 each 1 09/16/20 25 026 Active blood sugar diagnostic (OneTouch Verio test strips) test stripIndications: DM (diabetes mellitus), type 2 with peripheral vascular complications (CMS/[facility] V24, CMS/[facility] V28) Use this to check blood sugar once a day 100 each 1 09/16/20 25 026 Active glipiZIDE (GLUCOTROL) 5 mg tablet TAKE 1 tab with breakfast 09/19/20 25 Active insulin glargine,hum.rec. anlog (Basaglar KwikPen U-100 Insulin) 100 unit/mL (3 mL) injection pen Use 24 units at bedtime, reduce to 20-22 units if fasting sugars are persistently below 80 09/19/20 25 Active blood-glucose sensor, Freestyle Enoc 3 Plus, (FreeStyle Enoc 3 Plus Sensor) Apply 1 sensor and change every 15 days. Use one sensor every 15 days E11.9 6 each 1 09/19/20 25 Active blood sugar diagnostic (OneTouch Verio test strips) test stripIndications: DM (diabetes mellitus), type 2 with peripheral vascular complications (CMS/HCC V24, CMS/[facility] V28) Use this to check blood sugars three times a day 300 each 3 12/17/19 25 025 Discontin ued(Reord er) OneTouch UltraSoft LancetsIndication s:DM (diabetes mellitus), type 2 with peripheral vascular complications (CMS/HCC V24, CMS/HCC V28) Use to check blood sugars three times daily 300 each 3 12/17/19 25 025 Discontin ued(Formu kasia change) glipiZIDE (GLUCOTROL) 5 mg tablet TAKE 1 tab with breakfast and 1 tab with dinner 180 tablet 1 04/06/20 25 025 Discontin ued(Reord er) insulin glargine,hum.rec. 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 03/27/2018 Osteoarthritis of right hand 03/27/2018 Incisional hernia, without obstruction or gangre ne 04/11/2016 Erectile dysfunction 09/21/2015 DM (diabetes mellitus), type 2 with peripheral vascular complications 09/21/2015 Hypertension 09/21/2015 Hyperlipidemia 09/21/2015 Insomnia 09/21/2015 Migraines 09/21/2015 Lumbago 02/17/2006 Encounters Date Type Department Care Team Description 09/19/2025 8:30 AM EST Office Visit Endocrinology [address] [phone] Gabrielle Almodovar PA DM (diabetes mellitus), type 2 with peripheral vascular complications (CMS/HCC V24, CMS/HCC V28) (Primary Dx); Hypertension, unspecified type; Hyperlipidemia, unspecified hyperlipidemia type 09/12/2025 Telephone Adult Medicine [address] [phone] Rudolph Metcalf MD 07/26/2025 10:00 AM EDT Office Visit Orthopedic Surgery [address] [phone] Momo Majano, DPM Dermatophytosis of nail (Primary Dx); Pain in toe of right foot; Pain in toe of left foot; Corns and callosities; Diabetic mononeuropathy simplex ([facility] V24, [facility] V28); Type II diabetes mellitus with peripheral circulatory disorder ([facility] V24, [facility] V28); Metatarsalgia of both feet from Last 3 Months Immunizations Immunization Administration Dates Next Due COVID-19 (Moderna/Spikevax) 10yo [...] mellitus), type 2 with peripheral vascular complications ([facility] V24, [facility] V28) 09/21/2015 DX:DM (diabetes mellitus), type 2 with peripheral vascular complications ([facility]) Hypertension 09/21/2015 DX:Hypertension Hyperlipidemia 09/21/2015 DX:Hyperlipidemi a Insomnia 09/21/2015 DX:Insomnia Migraines 09/21/2015 DX:Migraines TBI (traumatic brain injury) ([facility] V24, [facility] V28) 09/21/2015 DX:TBI (traumatic brain inju ry) (HCC); COMMENT: Memory impairment Family History Medical History Relation Name Comments Other: Other Father Alive and well Other cancer Mother diabetes Relation Name Status Comments Father Alive Mother Alive Social History Tobacco Use Types Packs/Day Years Used Date Smoking Tobacco: Former Cigarettes 0.8 Q uit: 09/29/2006 Smokeless Tobacco: Never Tobacco Cessation:Counseling Given: Not Answered Alcohol Use Standard Drinks/Week Comments Yes 0 (1 standard drink = 0.6 oz pur e alcohol) Sex and Gender Information Value Date Recorded Sex Assigned at Not on file Legal Sex Male 12:28 AM EST Gender Identity Not on file Sexual Orientation Not on file Last Filed Vital Signs Vital Sign Reading Time Taken Comments Blood Pressure 137/80 09/19/2025 8:13 AM EST Pulse 59 09/19/2025 8:13 AM EST Temperature 36.6 C (97.8 F) 06/01/2025 11:07 AM EDT Respiratory Rate 15 09/19/2025 8:13 AM EST Oxygen Saturation 98% 06/01/2025 11:07 AM EDT Inhaled Oxygen Concentration - - Weight 84.8 kg (187 lb) 09/19/2025 8:13 AM EST Height 193 cm (6' 4 ) 09/19/2025 8:13 AM EST Body Mass Index 22.76 09/19/2025 8:13 AM EST Plan of Treatment Upcoming Encounters Date Type Department Care Team (Late st Contact Info) Description 12/21/2025 9:00 AM EDT Office Visit Endocrinology [address] [phone] Gabrielle Almodovar PA [address] [place] [address] 12/22/2025 9:45 AM EDT Office Visit Adult Medicine [address] [phone] Rudolph Metcalf MD [address] [place] [address] 07/26/2026 10:00 AM EDT Office Visit Orthopedic Surgery - [place] [address] [phone] Momo Majano, DPM [address] [phone] Health Maintenance Due Date Last Done Comments Diabetes: Annual Foot Exam 1973 HIV Screening 09/07/2022 Medicare Annual Wellness Visit 09/07/2022 Social Influencers of Health Screening 09/07/2022 Depression Screening 09/29/2024 05/28/2024 Diabetes: Annual Retina Eye Exam 11/12/2024 11/12/2023 COVID-19 Vaccine ( season) 2025 02/20/2021, 01/23/2021 Influenza Vaccine (#1) 2025 , 06/01/2020, 06/07/2019, Additional history exists Diabetes: Blood Sugar Control Test (HGBA1C) 11/29/2025 06/01/2025, 02/02/2025, 08/04/2024, Additional history exists Diabetes: Annual Urine Albumin-Creatinine Ratio (uACR) 06/01/2026 06/01/2025, 12/06/2024, 11/13/2023 Diabetes: Annual GFR (Glomerular Filtration Rate) 06/01/2026 06/01/2025, 04/05/2025, 05/04/2024 Hypertension/CHF/CAD Annual BMP Blood Test 06/01/2026 06/01/2025, 04/05/2025, 05/04/2024 DTaP,Tdap,and Td Vaccines (3 - Td or Tdap) 02/14/2028 02/13/2018, 09/29/2007 Colorectal Cancer Screening: Colonoscopy 11/13/2028 11/13/2023 Cholesterol Screening (Lipid Panel) 06/01/2030 06/01/2025, 12/06/2024, 11/13/2023 Hepatitis C Screening Completed 10/12/2015 Zoster Vaccines Completed 08/06/2019, 06/07/2019 Pneumococcal Vaccine: 50+ Years Completed 12/31/2024, 10/24/2009 RSV Immunization Adult Patients [...] Procedure Name Priority Date/Time Associated Diagnosis Comments MICROALBUMIN CREATININE URINE RATIO Routine 06/01/2025 11:52 AM EDT Uncontrolled diabetes mellitus of other type with hypoglycemia, unspecified hypoglycemia coma status (CMS/HCC V24, CMS/HCC V28) COMPREHENSIVE METABOLIC PANEL Routine 06/01/2025 11:52 AM EDT Uncontrolled diabetes mellitus of other type with hypoglycemia, unspecified hypoglycemia coma status (CMS/HCC V24, CMS/HCC V28) Primary hypertension HEMOGLOBIN A1C Routine 06/01/2025 11:52 AM EDT Uncontrolled diabetes mellitus of other type with hypoglycemia, unspecified hypoglycemia coma status (CMS/HCC V24, CMS/HCC V28) LIPID PANEL WITH REFLEX TO DIRECT LDL Routine 06/01/2025 11:52 AM EDT Pure hypercholesterolemia DEPRESSION SCREENING Routine 05/28/2024 COLONOSCOPY Routine 11/13/2023 DIABETES EYE EXAM Routine 11/12/2023 HEPATITIS C SCREENING Routine 10/12/2015 from Last 3 Months or Most Recently Relevant to Health Maintenance Results * (ABNORMAL) Lipid panel with reflex to direct LDL (06/01/2025 11:52 AM EDT) Cholesterol 109 0 - 200 mg/dL LAB CHEMISTRY METHOD 06/01/2025 3:31 PM EDT [facility] Triglycerides 81 0 - 150 mg/dL LAB CHEMISTRY METHOD 06/01/2025 3:31 PM EDT [facility] HDL 34(L) >=40 mg/dL LAB CHEMISTRY METHOD 06/01/2025 3:31 PM EDT [facility] LDL Calculated 59 0 - 100 mg/dL LAB CHEMISTRY METHOD 06/01/2025 3:31 PM EDT [facility] Comment:Estimated LDL Calcul ated using equation: Total cholesterol - HDL cholesterol - (Triglycerides/5) VLDL Cholesterol [place] 16.2 mg/dL LAB CHEMISTRY METHOD 06/01/2025 3:31 PM EDT [facility] Non HDL Chol. (LDL+VLDL) 75 <145 mg/dL LAB CHEMISTRY METHOD 06/01/2025 3:31 PM EDT [facility] Chol/HDL Ratio 3.2 0.0 - 4.4 LAB CHEMISTRY METHOD 06/01/2025 3:31 PM EDT [facility] Blood Venous blood specimen / Unknown Venipuncture / Unknown 06/01/2025 11:52 AM EDT 06/01/2025 11:52 AM EDT us Rudolph Metcalf MD LAB BLOOD ORDERABLES Final Resu lt [facility] [address] [place] [address], * Microalbumin creatinine urine ratio (06/01/2025 11:52 AM EDT) Creatinine, Urine 103.0 mg/dL LAB CHEMISTRY METHOD 06/01/2025 3:59 PM EDT [facility] Microalb, Ur 25.8 0.0 - 29.0 mg/L LAB CHEMISTRY METHOD 06/01/2025 3:59 PM EDT [facility] Microalb/Creat Ratio 25 <30 mg/g creat LAB CHEMISTRY METHOD 06/01/2025 3:59 PM EDT [facility] Urine Urine specimen obtained by clean catch procedure / Unknown Non-blood Collection / Unknown 06/01/2025 11:52 AM EDT 06/01/2025 11:52 AM EDT us Rudolph Metcalf MD LAB URINE ORDERABLES Final Resu lt Performing Organization Address [facility]/ZIP Co de Phone Number [facility] [address] [place] [address], [place] [phone] * (ABNORMAL) Hemoglobin A1c (06/01/2025 11:52 AM EDT) Hemoglobin A1C 7.1(H) <6.5 % LAB CHEMISTRY METHOD 06/01/2025 8:30 PM EDT [facility] Mean Bld Glu Estim. 157 mg/dL LAB CHEMISTRY METHOD 06/01/2025 8:30 PM EDT [facility] Blood Venous blood specimen / Unknown Venipuncture / Unknown 06/01/2025 11:52 AM EDT 06/01/2025 11:52 AM EDT us Rudolph eMtcalf MD LAB BLOOD ORDERABLES Final Resu lt [facility] [address] [place] [address], [place] [phone] * (ABNORMAL) Comprehensive metabolic panel (06/01/2025 11:52 AM EDT) Sodium 139 133 - 145 mmol/L LAB CHEMISTRY METHOD 06/01/2025 3:31 PM EDT [facility] Potassium 4.5 3.5 - 5.5 mmol/L LAB CHEMISTRY METHOD 06/01/2025 3:31 PM [facility] Chloride 107 96 - 110 mmol/L LAB CHEMISTRY METHOD 06/01/2025 3:31 PM [facility] CO2 28 21 - 32 mmol/L LAB CHEMISTRY METHOD 06/01/2025 3:31 PM [facility] Anion Gap 4 3 - 11 LAB CHEMISTRY METHOD 06/01/2025 3:31 PM [facility] Glucose 122(H) 70 - 100 mg/dL LAB CHEMISTRY METHOD 06/01/2025 3:31 PM [facility] BUN 11 5 - 25 mg/dL LAB CHEMISTRY METHOD 06/01/2025 3:31 PM [facility] Creatinine 1.15 0.70 - 1.30 mg/dL LAB CHEMISTRY METHOD 06/01/2025 3:31 PM [facility] eGFR 72 >=60 mL/min/1. 73m2 LAB CHEMISTRY METHOD 06/01/2025 3:31 PM [facility] Comment:Calculation based on the Chronic Kidney Disease Epidemiology Collaboration (CKD-EPI) equation refit without adjustment for race. BUN/Creatinine Ratio 9.6 LAB CHEMISTRY METHOD 06/01/2025 3:31 PM [facility] Calcium 9.6 8.5 - 10.5 mg/dL LAB CHEMISTRY METHOD 06/01/2025 3:31 PM [facility] AST (SGOT) 19 10 - 42 unit/L LAB CHEMISTRY METHOD 06/01/2025 3:31 PM [facility] ALT (SGPT) 24 10 - 60 unit/L LAB CHEMISTRY METHOD 06/01/2025 3:31 PM [facility] Alkaline Phosphatase 139(H) 42 - 121 unit/L LAB CHEMISTRY METHOD 06/01/2025 3:31 PM [facility] Total Protein 7.1 6.0 - 8.0 g/dL LAB CHEMISTRY METHOD 06/01/2025 3:31 PM EDT [facility] Albumin 4.2 3.2 - 5.0 g/dL LAB CHEMISTRY METHOD 06/01/2025 3:31 PM EDT [facility] Total Bilirubin 0.3 0.0 - 1.4 mg/dL LAB CHEMISTRY METHOD 06/01/2025 3:31 PM EDT [facility] Blood Venous blood specimen / Unknown Venipuncture / Unknown 06/01/2025 11:52 AM EDT 06/01/2025 11:52 AM EDT Result [facility] Rudolph Metcalf MD LAB BLOOD ORDERABLES Final Resu lt [facility] [address] [place] [address], * Depression Screening (05/28/2024) [facility] Depression Screening Abstracted [facility] Provider HEALTH MAINTENANCE Final Result * Colonoscopy (11/13/2023) [facility] Colonoscopy No Interpretation , Abstracted Anatomical Region Laterality Modality Other [facility] Provider HEALTH MAINTENANCE Final Result * Diabetes Eye Exam (11/12/2023) [facility] Diabetes: Annual Retina Eye Exam Abstracted Result [facility] Historical Provider HEALTH MAINTENANCE Final Result * Hepatitis C Screening (10/12/2015) [facility] Hepatitis C Screening Abstracted Historical Provider HEALTH MAINTENANCE Final Result from Last 3 Months or Most Recently Relevant to Health Maintenance Insurance [employer] MEDICARE ADVANTAGE MEDICAID - [place] Care Teams Operations Representative Relationship Specialty Start Date End Date Rudolph Metcalf MD [address] [place] [phone] PCP - General Internal Medicine 08/03/05
--- OUTSIDE RECORDS SUMMARY | 2025-09-23 09:35 | XMS_ITS ---
Author Name [facility] Organization Unknown Care Team Organization Name Specialty Phone Email Start Date End Da te [facility] ANTWAN SWEET Primary Care 06/05/2023 4 [facility] Gabrielle Almodovar Primary Care 08/06/2022 05/17/20 24
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
== END 2025-09-23 10:13 | disposition home or self-care (01) ==
LOC: HO.HSM 09:32
PROVIDERS: PCP Internal Medicine; Visit Provider Registered Nurse
DX: G25.0 Essential tremor (principal); Z87.820 Personal history of traumatic brain injury
CPT/HCPCS: 99214

== ENCOUNTER → 2025-09-23 09:31 | Outpatient (BNVA) | payer MEDICARE, SELFPAY | PROVIDERS: PCP Internal Medicine; Visit Provider Registered Nurse | DX: G25.0 Essential tremor (principal); Z87.820 Personal history of traumatic brain injury; Z79.899 Other long term (current) drug therapy | CPT/HCPCS: 99212 ==